=== PATIENT | male | born 1965 | race Caucasian/White ===

== ENCOUNTER → 2018-01-20 14:28 | Outpatient (CLI) | payer OTHER, SELFPAY ==
--- NOTE | 2018-01-20 14:33 | VDLE_ITS ---
Reason For Study: LEG SWELLING RIGHT LEFT CFV is compressible, spontaneous, phasic, GSV is normal. competent and demonstrates normal CFV is compressible, spontaneous, phasic, augmentation. competent, and demonstrates normal Procedure augmentation. Exam performed in department. FV, POP V, T/P trunk, and PTV are dilated LLE images are mislabeled as RLE. and non-compressible with intraluminal A preliminary report was called and/or faxed echoes. to Dr. Mcnally. LT PerV is compressible. Interpretation Summary Acute deep vein thrombosis is noted in the left femoral vein. Acute deep vein thrombosis is noted in the left popliteal vein. Acute deep vein thrombosis is noted in the left tibio-peroneal trunk. Acute deep vein thrombosis is noted in the left posterior tibial vein. The left common femoral vein and peroneal vein are patent and compressible. The left common femoral vein is competent. The left greater saphenous vein appears patent and compressible segmentally. Ordering Physician: Artie Mcnally Referring Physician: Artie Mcnally Performed By: Alayna Souza RVT
== END ==
LOC: CVS 14:30
PROVIDERS: Family Provider Family Medicine; PCP Family Medicine; Visit Provider Family Medicine
DX: R60.0 Localized edema (principal)
CPT/HCPCS: 93971

== ENCOUNTER 2018-02-15 22:12 | Emergency (ER) | payer OTHER, SELFPAY ==
[2018-02-15 22:12] VITALS: BP 122/86; PULSE 86; RESP 19; TEMP 36.1; O2SAT 98; BMI 37.6
[2018-02-15] MEDS: Clindamycin HCl 150 MG Capsule 300 MG PO (22:21)
--- NOTE | 2018-02-15 22:21 | ED.VISSUMM ---
- ER Visit Summary Date of Service: 02/15/18 Chief Complaint: left jaw pain History of Present Illness: The patient is a 53 M who presents with left jaw pain. He states he had acute onset of left tooth pain to 3 days ago. Now complains of left jaw pain and swelling. He denies antibiotic allergies. He is on Eliquis for DVT diagnosed January 20. He denies bruising easily. Denies black or maroon stool. He denies headache. Denies any ocular, visual or auditory symptoms. He denies difficulty opening or closing his mouth. He denies change in voice. He denies difficulty breathing or swallowing. There is no history rheumatic fever, heart murmur, MVP, SPE, IV drug use or being immune suppressed. Physical Examination: Vital signs are unremarkable. Afebrile. Patient has a significant dental Bessy second left lower molar with exposure of pulp. There is inflammation of the gum. There is no fluctuance. There is swelling of the jaw on the left side. There is no evidence of facial cellulitis. There is no trismus. Uvula is midline. Trachea is midline. There is no stridor. Insert cardiopulmonary exam Test Results: None Emergency Department Course and Treatment: Since patient is on Eliquis he was treated with [place] and clindamycin. NSAIDs are contraindicated. Treatment Plan: Outpatient follow-up with dentist and medication for pain and antibiotic. Next field discharged to home at work so well Disposition: Discharge to home Impression: Dental Bessy with exposure of pulp second left lower molar with dental abscess This note was generated with [employer] dictation software. It may contain incorrect words, spelling, and punctuation that were not noted in review of the chart prior to signing ED Disposition - Plan for ED Patient: Disposition: Home or Assisted Living Chief Complaint: Dental Instructions: Dental Abscess Prescriptions: Hydrocodone Bitart/Apap 5-325 [[place] 5MG-325MG] 1 tab PO Q6H PRN PRN 3 Days #10 tab PRN Reason: Pain Clindamycin HCl 300 mg PO 4X/DAY #30 cap Referrals: Artie Mcnally MD [Primary Care Provider] - Dentist,Your [STAFF PHYSICIAN] - 5-7 Days
[2018-02-15 22:22] VITALS: RESP 16
[2018-02-15] MEDS: HYDROcodone Bitartrate/Apap 5/325 Tablet PO ×2 (22:22→22:37)
--- NOTE | 2018-02-15 22:26 | ED.DCSUM_ITS ---
- ER Visit Summary Date of Service: 02/15/18 Chief Complaint: left jaw pain History of Present Illness: The patient is a 53 M who presents with left jaw pain. He states he had acute onset of left tooth pain to 3 days ago. Now complains of left jaw pain and swelling. He denies antibiotic allergies. He is on Eliquis for DVT diagnosed January 20. He denies bruising easily. Denies black or maroon stool. He denies headache. Denies any ocular, visual or auditory symptoms. He denies difficulty opening or closing his mouth. He denies change in voice. He denies difficulty breathing or swallowing. There is no history rheumatic fever, heart murmur, MVP, SPE, IV drug use or being immune suppressed. Physical Examination: Vital signs are unremarkable. Afebrile. Patient has a significant dental Bessy second left lower molar with exposure of pulp. There is inflammation of the gum. There is no fluctuance. There is swelling of the jaw on the left side. There is no evidence of facial cellulitis. There is no trismus. Uvula is midline. Trachea is midline. There is no stridor. Insert cardiopulmonary exam Test Results: None Emergency Department Course and Treatment: Since patient is on Eliquis he was treated with [place] and clindamycin. NSAIDs are contraindicated. Treatment Plan: Outpatient follow-up with dentist and medication for pain and antibiotic. Next field discharged to home at work so well Disposition: Discharge to home Impression: Dental Bessy with exposure of pulp second left lower molar with dental abscess This note was generated with [employer] dictation software. It may contain incorrect words, spelling, and punctuation that were not noted in review of the chart prior to signing ED Disposition - Plan for ED Patient: Disposition: Home or Assisted Living Chief Complaint: Dental Instructions: Dental Abscess Prescriptions: Hydrocodone Bitart/Apap 5-325 [[place] 5MG-325MG] 1 tab PO Q6H PRN PRN 3 Days #10 tab PRN Reason: Pain Clindamycin HCl 300 mg PO 4X/DAY #30 cap Referrals: Artie Mcnally MD [Primary Care Provider] - Dentist,Your [STAFF PHYSICIAN] - 5-7 Days
--- NOTE | 2018-02-15 22:39 | ED.RN ---
home pack added- see MAR
== END 2018-02-15 22:31 | disposition home or self-care (01) ==
PROVIDERS: Emergency Provider Emergency Medicine; Family Provider Family Medicine; PCP Family Medicine
DX: K04.7 Periapical abscess without sinus (principal); K02.9 Dental caries, unspecified; I82.409 Acute embolism and thrombosis of unspecified deep veins of unspecified lower extremity; Z79.02 Long term (current) use of antithrombotics/antiplatelets; Z72.0 Tobacco use
CPT/HCPCS: 99283

== ENCOUNTER → 2019-11-15 | Outpatient (CLI) | payer OTHER, SELFPAY ==
[2019-11-15 15:54] LABS: Vitamin D,25 Hydroxy 21.3 ng/mL
[2019-11-15 16:06] LABS: AST(SGOT) 21 U/L (15-37); Alanine Aminotransfer ALT/SGPT 20 U/L (16-61); Albumin, Serum 3.1 g/dL (3.2-5.0); Alkaline Phosphatase 45 U/L (45-117); Anion Gap 6 (5-15); BUN 9 mg/dL (7-18); BUN/Creat Ratio 11.1 RATIO (10-20); CRP < 2.90 mg/L (0.0-3.0); Calcium,Total 8.4 mg/dL (8.5-10.1); Chloride 105 mmol/L (98-107); Creatinine, Serum 0.81 mg/dL (0.70-1.30); EST Glomerular Filtration Rate 104 mL/min (>60); Est Glom Filt Rate - Afr Amer 126 mL/min (>60); Globulin 3.2 g/dL (2.2-4.2); Glucose 77 mg/dL (74-106); Potassium 3.4 mmol/L (3.5-5.1); Protein, Total 6.3 g/dL (6.4-8.2); Rheumatoid Factor < 10.0 IU/mL (<15); Sodium Level 137 mmol/L (136-145); T4 Free Direct 1.11 ng/dL (0.76-1.46); Thyroid Stim Hormone (TSH) 1.89 uIU/mL (0.358-3.74)
[2019-11-15 16:29] LABS: Absolute Lymphocyte Count 2.21 X10^3/uL (0.83-4.51); Absolute Neutrophil Count 2.4 X10^3/uL (2.0-7.7); Basophil# 0.06 X10^3/uL; Basophil% 1.1 % (0-1); Eosinophil# 0.21 X10^3/uL; Eosinophils% 3.9 % (0-5); Hematocrit 36.1 % (40-54); Hemoglobin 12.6 g/dL (13.0-16.5); Lymphocyte # 2.21 X10^3/ul (4.0); Lymphocyte % 41.5 % (19-41); Mean Corp Hgb Conc 34.9 g/dL (32-36); Mean Corpuscular Hgb 28.7 pg (27.0-32.0); Mean Corpuscular Volume 82.2 fL (80-94); Mean Platelet Vol. 10.4 fl (6.2-12.0); Monocyte# 0.47 X10^3/uL; Monocyte% 8.8 % (0-10); NRBC Flagged by Analyzer 0 % (0-5); Neutrophil # 2.37 X10^3/uL (2.7-7.7); Neutrophil % 44.7 % (47-70); Platelet Count 234 K/mm3 (150-450); RBC Distribution Width CV 13.2 % (11.6-14.6); RBC Distribution Width SD 39.5 fl (35.1-43.9); Red Blood Count 4.39 M/mm3 (4.6-6.2); White Blood Count 5.3 K/mm3 (4.4-11.0)
[2019-11-15 17:16] LABS: Erythrocyte Sedimentation Rate 7 mm/hr (0-20)
[2019-11-16 09:45] LABS: Ferritin 399 ng/mL (26-388); Iron 83 ug/dL (65-175)
[2019-11-17 23:09] LABS: Anti-Nuclear Antibody Test Negative (.)
[2019-11-18 14:09] LABS: CCP IgG Antibodies 8 units (0-19)
== END | disposition home or self-care (01) ==
LOC: BFHLAB 13:17
PROVIDERS: PCP Family Medicine; Visit Provider Family Medicine
DX: M13.0 Polyarthritis, unspecified (principal); D64.9 Anemia, unspecified; R50.9 Fever, unspecified; R53.83 Other fatigue
CPT/HCPCS: 36415; 80053; 82306; 82728; 83540; 84439; 84443; 85025; 85652; 86038; 86140; 86200; 86431

== ENCOUNTER → 2023-10-24 | Outpatient (CLI) | payer OTHER, SELFPAY ==
--- OUTSIDE RECORDS SUMMARY | 2023-10-24 11:03 | XMS RPT_ITS | CCD ---
Author Name Unknown Address [address] [place] [address] Organization [facility] Care Team Providers Care Workforce Development Assistant Name Role Phone ARTIE MCNALLY Unavailable Unavailable SAEED DUKE Unavailable Unavailable ARTIE MCNALLY Unavailable Unavailable SAEED DUKE Unavailable Unavailable Dali ALLEN, Artie Johnson Primary Care Provider Dali ALLEN, Artie Johnson Primary Care Provider Unavailable Primary Care Provider Unavailxenia Mcnally MD, Artie Johnson Primary Care Provider Rohini TITLE ATTORNEY, [place] Primary Care Provider YUDI REID Attending Unavailable ROHINI, LAWTONS Primary Care Unavailable Rohini TITLE ATTORNEY, [place] Primary Care Provider LACY FRANCO Attending Unavailable ASHLYI, SAEED A Referring Unavailable ROHINI, LAWTONS Primary Care Unavailable LACY FRANCO Attending Unavailable LACY FRANCO Referring Unavailable LACY FRANCO Referring Unavailable MASCISAEED A Referring Unavailable ARTIE MCNALLY Primary Care Unavailable SAEED DUKE A Attending Unavailable ARTIE MCNALLY Primary Care Unavailable MASCI, SAEED A Referring Unavailable DALIARTIE STORM Primary Care Unavailable MASCI, SAEED A Referring Unavailable DALIARTIE STORM Primary Care Unavailable MASCI, SAEED A Referring Unavailable DALIARTIE STORM Primary Care Unavailable ASHLYI, SAEED A Referring Unavailable ARTIE MCNALLY Primary Care Unavailable LACY FRANCO Referring Unavailable ROHINI, LAWTONS Primary Care Unavailable LACY FRANCO Referring Unavailable ROHINI, LAWTONS Primary Care Unavailable LACY FRANCO Referring Unavailable ROHINI, LAWTONS Primary Care Unavailable MASCISAEED A Referring Unavailable Medications Current Medications Medication Drug Class(es) Dates Sig (Normalized) Sig (Original) enteric contrast (will be provided with radiology test) (1 source) Start: 12-21-2021 End: 12-21-2021 take 1 dose by mouth once, then take 1 dose by mouth once enteric contrast (will be provided with radiology test) Indications: Malignant melanoma of skin (HCC) Take 1 Each by mouth one time only for [address] ABD/PEL WO Routine order Administer, As Directed One Time Only, via Oral, Rectal, both Oral and Rectal, Enteric Tube, Stoma or Indwelling Catheter, Enteric Contrast as designated per enteric contrast guidelines 1 Each 0 12/21/2021 12/21/2021 Active Completed/Discontinued Medications Medication Drug Class(es) Dates Sig (Normalized) Sig (Original) acetaminophen 325 mg oral tablet (20 sources) Start: 12-01-2013 take 325-650 mg by mouth every four hours as needed acetaminophen 325 mg tablet Take 1-2 tablets by mouth every 4 hours as needed. FOR PAIN. 0 12/01/2013 Active Problems Active Problems Problem Classification Problem Date Documented Da te Episodic/Chronic Cancer of kidney and renal pelvis (2 sources) History of malignant neoplasm of retroperitoneum; Translations: [Personal history of other malignant neoplasm of kidney] Onset: 08-22-2023 08-21-2023 Episodic Melanomas of skin (20 sources) Malignant melanoma; Translations: [Malignant melanoma of skin, unspecified] Onset: 12-02-2013 12-02-2013 Chronic Other connective tissue disease (1 source) Swelling of lower limb; Translations: [Other specified soft tissue disorders] Episodic Other diseases of kidney and ureters (9 sources) Renal mass; Translations: [Other specified disorders of kidney and ureter] Onset: 04-25-2023 Chronic Other diseases of kidney and ureters (4 sources) Other specified disorders of kidney and ureter; Translations: [Right renal mass] Onset: 02-28-2023 Chronic Other diseases of kidney and ureters (3 sources) Acquired renal cystic disease; Translations: [Cyst of kidney, acquired] Episodic Other diseases of kidney and ureters (9 sources) Complex renal cyst; Translations: [Cyst of kidney, acquired] Onset: 04-25-2023 Episodic Other diseases of veins and lymphatics (20 sources) Postthrombotic syndrome; Translations: [Postthrombotic syndrome without complications of unspecified extremity] Onset: 07-08-2018 07-08-2018 Chronic Other diseases of veins and lymphatics (1 source) Postthrombotic syndrome without complications of unspecified extremity; Translations: [Post-phlebitic syndrome] Onset: 07-08-2018 Chronic Other endocrine disorders (1 source) Hypopituitarism; Translations: [Hypopituitarism] Chronic Other nutritional; endocrine; and metabolic disorders (20 sources) Obesity; Translations: [Obesity, unspecified] Onset: 05-18-2008 05-18-2008 Chronic Other nutritional; endocrine; and metabolic disorders (4 sources) Obese class II; Translations: [Obesity, unspecified] Onset: 05-03-2023 05-03-2023 Chronic Other nutritional; endocrine; and metabolic disorders (1 source) Obesity, unspecified; Translations: [Obesity, unspecified classification, unspecified obesity type, unspecified whether serious comorbidity present] Onset: 05-18-2008 Chronic Phlebitis; thrombophlebitis and thromboembolism (20 sources) 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; Translations: [Chronic embolism and thrombosis of left femoral vein] Onset: 01-01-2021 01-01-2021 Chronic Secondary malignancies (1 source) Secondary and unspecified malignant neoplasm of lymph nodes of head, face and neck Onset: 12-20-2017 Chronic Secondary malignancies (20 sources) Metastasis to head and neck lymph node; Translations: [Secondary and unspecified malignant neoplasm of lymph nodes of head, face and neck] Onset: 12-02-2013 12-02-2013 Chronic Thyroid disorders (20 sources) Non-toxic uninodular goiter; Translations: [Nontoxic single thyroid nodule] Onset: 04-28-2014 04-28-2014 Chronic Unclassified (1 source) Unknown / UNK(Unknown) Onset: 12-02-2013 Past or Other Problems Problem Classification Problem Date Documented Da te Episodic/Chronic Abdominal hernia (20 sources) Umbilical hernia; Translations: [Umbilical hernia without obstruction or gangrene] Onset: 05-18-2008 05-18-2008 Episodic Other diseases of kidney and ureters (5 sources) Cyst of kidney, acquired; Translations: [Complex renal cyst] Onset: 02-04-2023 Episodic Other gastrointestinal disorders (1 source) Splenomegaly, not elsewhere classified; Translations: [Splenomegaly, not elsewhere classified] Onset: 01-16-2023 Episodic Phlebitis; thrombophlebitis and thromboembolism (20 sources) Deep venous thrombosis of profunda femoris vein; Translations: [Acute embolism and thrombosis of left femoral vein] Onset: 03-30-2018 07-08-2018 Episodic Results Test Name Value Interpretation Reference Range Facil ity Vital Signs Date Time Vital Sign Value Performing Clinician Rajesh swenson 08-22-2023 14:45-0500 Body height 179.1 cm Lacy Franco MD Work Phone: [facility] 08-22-2023 14:45-0500 Body weight 108.41 kg Lacy Franco MD Work Phone: [facility] 08-22-2023 14:45-0500 Diastolic blood pressure 76 mm[Hg] Lacy Franco MD Work Phone: [facility] 08-22-2023 14:45-0500 Heart rate 68 /min Lacy Franco MD Work Phone: [facility] 08-22-2023 14:45-0500 SaO2% (BldA) [Mass fraction] 98 % Lacy Franco MD Work Phone: [facility] 08-22-2023 14:45-0500 Systolic blood pressure 132 mm[Hg] Lacy Franco MD Work Phone: [facility] 02-28-2023 08:42-0400 Body height 179.1 cm Lacy Franco MD Work Phone: [facility] 02-28-2023 08:42-0400 Body weight 129.28 kg Lacy Franco MD Work Phone: [facility] 02-28-2023 08:42-0400 Diastolic blood pressure 92 mm[Hg] Lacy Franco MD Work Phone: [facility] 02-28-2023 08:42-0400 Systolic blood pressure 138 mm[Hg] Lacy Franco MD Work Phone: [facility] 12-21-2021 14:55-0400 Body temperature 96.49 [degF] Saeed Duke DO Work Phone: [facility] 12-21-2021 14:55-0400 Body weight 132 kg Saeed Duke DO Work Phone: [facility] 12-21-2021 14:55-0400 Diastolic blood pressure 78 mm[Hg] Saeed Duke DO Work Phone: [facility] 12-21-2021 14:55-0400 Heart rate 69 /min Saeed Duke DO Work Phone: [facility] 12-21-2021 14:55-0400 SaO2% (BldA) [Mass fraction] 98 % Saeed Duke DO Work Phone: [facility] 12-21-2021 14:55-0400 Systolic blood pressure 138 mm[Hg] Saeed Duke DO Work Phone: [facility] Encounters Encounter Date Encounter Type Care Provider Facility Start: 08-22-2023 End: 08-22-2023 [facility] Facility:[facility] Start: 08-22-2023 End: 08-22-2023 Patient encounter procedure Lacy Franco MD Work Phone: Urology Procedures Date Procedure Procedure Detail Performing Clinician Start: 05-15-2023 Antibody screen LACY FRANCO Plan of Treatment Date Care Activity Detail Author Start: 05-27-2026 Diabetes Screening Diabetes Screenapoorva g [facility] Start: 03-04-2026 DIABETES SCREEN DIABETES SCREEN [facility] Start: 12-18-2025 DIABETES SCREEN DIABETES SCREEN [facility] Start: 12-18-2024 DIABETES SCREEN DIABETES SCREEN [facility] Start: 12-29-2023 DIABETES SCREEN DIABETES SCREEN [facility] Start: 11-21-2023 End: 02-20-2024 CREATININE BLD CREATININE BLD Lab Routine Complex renal cyst Expected: 11/21/2023 (Approximate), Expires: 02/20/2024 [facility] Work Phone: Immunizations Immunization Date Immunization Notes Care Provider Atilio daily 07-08-2018 influenza virus vacc ine, unspecified formulation Ct (I-Stat) Work Phone: [facility] Payers Date Payer Category Payer Private Health Insurance [facility] CHOICE PLUS [id number] 2007-Present [phone] [address] [place] [id number] O [id number] 2007 Private Health Insurance [facility] CHOICE PLUS [id number] 2007-Present [phone] [address] [place] [id number] O [id number] 2007 Unknown [id number] Social History Date Type Detail Facility Start: 12-21-2013 Tobacco smoking stat [facility] Never smoked tobacco [facility] Start: 01-01-2021 End: 08-22-2023 Alcohol intake Current drinker of alcohol (finding) [facility] Start: 05-18-2008 History SDOH Alcohol Comment occasional [facility] Start: 1965 Sex Assigned At Male C [facility] Start: 11-19-2021 End: 12-21-2021 Exposure to SARS-CoV-2 (event) Not sure [facility] Start: 12-21-2013 Tobacco use and exposure Smoke less tobacco non-user [facility] Start: 12-17-2022 End: 02-28-2023 History of Social function [facility] Start: 12-17-2022 End: 02-28-2023 Tobacco use panel [facility] Adult Depression Screening Assessment 0 [facility] Start: 12-22-2018 Gender identity Identifies as male gender (finding) [facility] Start: 12-22-2018 Sexual orientation Heterosexual (fin ding) [facility] Clinical Notes 07-08-2018 to 08-22-2023 Lacy Franco MD - 08/22/2023 2:45 PM Jessi Urban RDMS - 08/21/2023 10:45 AM ESTTelephone Encounter - Barbara Brenner LPN - 08/18/2023 10:41 AM EST Note Date & Type Note Facility 08-22-2023 Note HNO ID: [id number] Author: Lacy Franco MD Service: ? Author Type: Physician Type: Progress Notes Filed: 08/22/2023 3:00 PM Note Text: [facility] ESTABLISHED PATIENT FOLLOW-UP NOTE PATIENT: Yoko Rivera (58 year old) PCP: Ruthie Calderon NP ------- --------- SUMMARY: #Right renal cell carcinoma. 05/15/23 - R-RPN. Final path - pT1aR0 G2 ccRCC. Low risk. #Complex renal cyst. 1.9-cm Bosniak 2F left lower pole complex renal cyst on CT renal-01/2023. PMH sig for h/o melanoma s/p parotid removal and lymph node dissection and adjuvant therapy. *BT=Xarelto for history of DVT. ASSESSMENT: 1. Complex renal cyst - ICD9: 753.10, ICD10: N28.1 (primary diagnosis) 2. History of kidney cancer - ICD9: V10.52, ICD10: Z85.528 3. Acquired cyst of kidney - ICD9: 593.2, ICD10: N28.1 PLAN: #1 Chronic, unstable. BENY images personally reviewed. The images are poor quality, in part, due to body habitus. On my read, the left lower pole renal cyst appears to be simple or mildly complex. Follow up radiology final read. I recommend MRI kidney wwo gadolinium for better evaluation. #2 Chronic, stable. Proceed with surveillance. sCr is wnl and stable. Plan for renal and chest imaging and Cr in ~9 months. He gets other surveillance imaging for melanoma surveillance with Dr. Duke; the imaging can likely be consolidated. FOLLOW UP: Return in about 3 months (around 11/21/2023) for MRI kidney. ------- --------- CHIEF COMPLAINT: Patient presents with: Follow Up: Right renal mass HISTORY OF PRESENT ILLNESS: Prior notes were reviewed. The patient reports doing well. No complaints. AMELIA/AUASS FORMS No question data found. REVIEW OF SYSTEMS: Not applicable ALLERGIES: ALLERGIES No Known Allergies MEDICATIONS: iv contrast (will be provided with radiology test) MRI Kidney Inject, intravenously, once for 1 dose. No IV access, insert saline lock prior to the beginning of sedation, infusion, injection of imaging exam. Discontinue saline lock post exam. If Pt. has a central line or IVAD, may access for administration according to line specific nursing protocol. Once exam is complete flush line and de-access according to line specific nursing protocol in the MR contrast administration guidelines link. XARELTO 10 mg tablet Take 1 tablet by mouth once daily. cetirizine (ZYRTEC) 10 mg tablet Take 10 mg by mouth daily at bedtime. hydrocortisone (CORTEF) 10 mg tablet TAKE 2 TABLETS ONCE DAILY (Patient taking differently: Take 10 mg by mouth once daily.) SYNTHROID 50 mcg tablet TAKE 1 TABLET ONCE DAILY JOSHUA EMPTY STOMACH multivitamin tablet Take 1 tablet by mouth once daily. acetaminophen 325 mg tablet Take 1-2 tablets by mouth every 4 hours as needed. FOR PAIN. PAST HISTORY: PAST MEDICAL HISTORY Diagnosis Date Adrenal insufficiency (HCC) per medical records Known medical problems 2017 dvt lower leg Known medical problems portal thrombus 2019 Melanoma (HCC) 11/01/13 removal of parodid gland PAST SURGICAL HISTORY Procedure Laterality Date PAST SURGICAL HISTORY OF age 2 oral surgery PAST SURGICAL HISTORY OF age 17 left jaw surgery post fracture (tripod fracture) PAST SURGICAL HISTORY OF 2013 parotid gland removed TONSILLECTOMY PRIMARY/SECONDARY FAMILY HISTORY Problem Relation Age of Onset Cancer Father kidney Breast Cancer Mother Cancer Sister skin, unsure type Diabetes Other none Coronary Artery Disease Other none other (tuberculosis [Other]) Father Social History Tobacco Use Smoking status: Never Smokeless tobacco: Never Vaping Use Vaping Use: Never used Substance Use Topics Alcohol use: Yes Comment: occasional Drug use: No Comment: no medicatl THC card PHYSICAL EXAMINATION: BP 132/76 Pulse 68 Ht 179.1 cm (5' 10.5 ) Wt 108.4 kg (239 lb) SpO2 98% BMI 33.81 kg/m? Genitourinary: (1) Rectal: . (2) CVA: . (3) Genital: . (4) Gonads: . (5) Other: . Constitutional: In no acute distress. Well appearing. Respiratory: Normal respiratory effort without use of accessory muscles. Musculoskeletal: Normal gait and station Cardiovascular: Gastrointestinal: Incisions well healed. DATA: Clinic: URINALYSIS: N/a Laboratory: Creatinine Date Value Ref Range Status 08/21/2023 0.91 0.73 - 1.22 mg/dL Final 05/27/2023 0.96 0.73 - 1.22 mg/dL Final 05/16/2023 1.05 0.73 - 1.22 mg/dL Final 03/04/2023 1.07 0.73 - 1.22 mg/dL Final PSA: No results found for: PSA Cultures: Culture Results - Past 1 Year CULTURE 04/30/2023 <10,000 CFU/ml Normal Urogenital Nettie Some recent data might be hidden Susceptibility Tests - Past 1 Year No results fo (more content not included)... [facility] 08-22-2023 History of Present illness Narrative [facility] ESTABLISHED PATIENT FOLLOW-UP NOTE PATIENT: Yoko Fermin Aanhi (58 year old) PCP: Ruthie Calderon NP SUMMARY: #Right renal cell carcinoma. 05/15/23 - R-RPN. Final path - pT1aR0 G2 ccRCC. Low risk. #Complex renal cyst. 1.9-cm Bosniak 2F left lower pole complex renal cyst on CT renal-01/2023. PMH sig for h/o melanoma s/p parotid removal and lymph node dissection and adjuvant therapy. *BT=Xarelto for history of DVT. ASSESSMENT: 1. Complex renal cyst - ICD9: 753.10, ICD10: N28.1 (primary diagnosis) 2. History of kidney cancer - ICD9: V10.52, ICD10: Z85.528 3. Acquired cyst of kidney - ICD9: 593.2, ICD10: N28.1 PLAN: #1 Chronic, unstable. BENY images personally reviewed. The images are poor quality, in part, due to body habitus. On my read, the left lower pole renal cyst appears to be simple or mildly complex. Follow up radiology final read. I recommend MRI kidney wwo gadolinium for better evaluation. #2 Chronic, stable. Proceed with surveillance. sCr is wnl and stable. Plan for renal and chest imaging and Cr in ~9 months. He gets other surveillance imaging for melanoma surveillance with Dr. Duke; the imaging can likely be consolidated. FOLLOW UP: Return in about 3 months (around 11/21/2023) for MRI kidney. CHIEF COMPLAINT: Patient presents with: Follow Up: Right renal mass HISTORY OF PRESENT ILLNESS: Prior notes were reviewed. The patient reports doing well. No complaints. AMELIA/AUASS FORMS No question data found. REVIEW OF SYSTEMS: Not applicable ALLERGIES: ALLERGIES No Known Allergies MEDICATIONS: iv contrast (will be provided with radiology test) MRI Kidney Inject, intravenously, once for 1 dose. No IV access, insert saline lock prior to the beginning of sedation, infusion, injection of imaging exam. Discontinue saline lock post exam. If Pt. has a central line or IVAD, may access for administration according to line specific nursing protocol. Once exam is complete flush line and de-access according to line specific nursing protocol in the MR contrast administration guidelines link. XARELTO 10 mg tablet Take 1 tablet by mouth once daily. cetirizine (ZYRTEC) 10 mg tablet Take 10 mg by mouth daily at bedtime. hydrocortisone (CORTEF) 10 mg tablet TAKE 2 TABLETS ONCE DAILY (Patient taking differently: Take 10 mg by mouth once daily.) SYNTHROID 50 mcg tablet TAKE 1 TABLET ONCE DAILY JOSHUA EMPTY STOMACH multivitamin tablet Take 1 tablet by mouth once daily. acetaminophen 325 mg tablet Take 1-2 tablets by mouth every 4 hours as needed. FOR PAIN. PAST HISTORY: PAST MEDICAL HISTORY Diagnosis Date Adrenal insufficiency (HCC) per medical records Known medical problems 2017 dvt lower leg Known medical problems portal thrombus 2019 Melanoma (HCC) 11/01/13 removal of parodid gland PAST SURGICAL HISTORY Procedure Laterality Date PAST SURGICAL HISTORY OF age 2 oral surgery PAST SURGICAL HISTORY OF age 17 left jaw surgery post fracture (tripod fracture) PAST SURGICAL HISTORY OF 2013 parotid gland removed TONSILLECTOMY PRIMARY/SECONDARY <AGE 10 age 9 FAMILY HISTORY Problem Relation Age of Onset Cancer Father kidney Breast Cancer Mother Cancer Sister skin, unsure type Diabetes Other none Coronary Artery Disease Other none other (tuberculosis [Other]) Father Social History Tobacco Use Smoking status: Never Smokeless tobacco: Never Vaping Use Vaping Use: Never used Substance Use Topics Alcohol use: Yes Comment: occasional Drug use: No Comment: no medicatl THC card PHYSICAL EXAMINATION: BP 132/76 Pulse 68 Ht 179.1 cm (5' 10.5 ) Wt 108.4 kg (239 lb) SpO2 98% BMI 33.81 kg/m Genitourinary: (1) Rectal: . (2) CVA: . (3) Genital: . (4) Gonads: . (5) Other: . Constitutional: In no acute distress. Well appearing. Respiratory: Normal respiratory effort without use of accessory muscles. Musculoskeletal: Normal gait and station Cardiovascular: Gastrointestinal: Incisions well healed. DATA: Clinic: URINALYSIS: N/a Laboratory: Creatinine Date Value Ref Range Status 08/21/2023 0.91 0.73 - 1.22 mg/dL Final 05/27/2023 0.96 0.73 - 1.22 mg/dL Final 05/16/2023 1.05 0.73 - 1.22 mg/dL Final 03/04/2023 1.07 0.73 - 1.22 mg/dL Final PSA: No results found for: PSA Cultures: Culture Results - Past 1 Year CULTURE 04/30/2023 <10,000 CFU/ml Normal Urogenital Nettie Some recent data might be hidden Susceptibility Tests - Past 1 Year No results found for the last 365 days. MEDICAL DECISION MAKING PROBLEM(S): DATA: Category 1 Review of test result(s): Ordering of test(s): Review of prior external note: Independent historian: Category 2 Independent interpretation of test: Category 3 Discussion of management or test interpretation: RISK: I have reviewed the problem list, family history, and social history documented by my ancillary staff. Lacy Franco MD Staff Urologist documented in this encounter [facility] 08-21-2023 Note HNO ID: [id number] Author: Jessi Herrera RDMS Service: ? Author Type: Heavy Forging Machine Operator Type: Progress Notes Filed: 08/21/2023 11:11 AM Note Text: Radiology Service Progress Note PATIENT NAME: Yoko Rivera DATE OF SERVICE: August 21, 2023 TIME: 11:11 AM PATIENT IDENTITY VERIFICATION COMPLETED USING TWO (2) IDENTIFIERS: Name and Date of confirmed by patient verbally. FALL SCREENING: Has the patient had 2 falls in the last year or 1 fall with injury or currently using an Ambulatory Assistive Device (Walker, Cane, Wheelchair, Crutches, etc.)? No PATIENT GENDER DATA: Male PATIENT RELEVANT IMPLANT DATA REVIEWED: Not Applicable RADIOLOGY DEPARTMENT: Ultrasound PERIPHERAL IV DATA: Not applicable SIGNED BY: Jessi Herrera RDMS August 21, 2023 11:11 AM [facility] 08-21-2023 History of Present illness Narrative Radiology Service Progress Note PATIENT NAME: Yoko Rivera DATE OF SERVICE: August 21, 2023 TIME: 11:11 AM PATIENT IDENTITY VERIFICATION COMPLETED USING TWO (2) IDENTIFIERS: Name and Date of confirmed by patient verbally. FALL SCREENING: Has the patient had 2 falls in the last year or 1 fall with injury or currently using an Ambulatory Assistive Device (Walker, Cane, Wheelchair, Crutches, etc.)? No PATIENT GENDER DATA: Male PATIENT RELEVANT IMPLANT DATA REVIEWED: Not Applicable RADIOLOGY DEPARTMENT: Ultrasound PERIPHERAL IV DATA: Not applicable SIGNED BY: Jessi Herrera RDMS August 21, 2023 11:11 AM documented in this encounter [facility] 08-18-2023 Miscellaneous Notes Rx pended. Barbara Brenner LPN documented in this encounter [facility] 05-29-2023 Note HNO ID: [id number] Author: Yudi Reid, PRODUCT OWNER.SOURCE INSPECTOR Service: ? Author Type: Nurse Practitioner Type: Progress Notes Filed: 05/30/2023 2:03 PM Note Text: [facility] ESTABLISHED PATIENT FOLLOW-UP NOTE PATIENT: Yoko Rivera (58 year old) PCP: Ruthie Calderon NP ------- --------- SUMMARY: History of melanoma s/p parotid removal and lymph node dissection and adjuvant therapy. He has been on surveillance. CT-12/2022 obtained for malignant melanoma of skin surveillance incidentally detected a 2.2-cm upper pole right renal lesion and stable adenopathy adjacent to the left renal vein. MRI-01/2023 showed enhancement of the upper pole right renal lesion, also showed cirrhosis and chronic portal vein thrombosis. CT renal-01/2023 showed a 1.8-cm enhancing upper pole right renal mass and a 1.9-cm Bosniak 2F left lower pole complex renal cyst. CT-chest, 12/2022 - neg for mets. (1A with early branching, 1V, 1U). *BT=Xarelto for history of DVT. PMH sig for umbilical hernia. S/p robotic assisted laparoscopic right partial nephrectomy, intraoperative renal us on 05/15/[address] Franco assisted by Dr. Govea. ASSESSMENT/PLAN: 1. Right renal mass - ICD9: 593.9, ICD10: N28.89 (primary diagnosis) Patient is s/p robotic assisted laparoscopic right partial nephrectomy, intraoperative renal us on 05/15/[address] Franco assisted by Dr. Govea. Patient is POD # 14. Patient is doing well post operatively. He reports pain is controlled. Currently taking no medications for pain. Tylenol Incisions well approximated without redness, warmth, or drainage. Having bowel movements without difficulty. Appetite is well. Pathology reviewed which demonstrated A. Kidney, right, partial nephrectomy: - Clear cell renal cell carcinoma, WHO grade 2 (see comment). - Tumor size: 2.2 cm in greatest dimension. - Margins negative for tumor.. Follow-up: with Dr. Franco Follow-up imaging to be completed by hem/onc with CT scans as LR disease. 2. Complex renal cyst - ICD9: 753.10, ICD10: N28.1 Renal US 08/22/23. FOLLOW UP: Return for Keep scheduled appointment with Dr. Franco in August. ------- --------- CHIEF COMPLAINT: Patient presents with: Follow Up HISTORY OF PRESENT ILLNESS: Prior notes were reviewed. The patient reports doing well. Mr. Rivera presents for 2 week follow-up S/P right partial nephrectomy by Dr. Franco/Dr. Govea on 05/15/23. He reports he is doing well. He reports he is having no pain. He is taking Tylenol intermittent for pain. Incisions well approximated without redness, warmth, or drainage. Bowels are moving without difficulty. He reports good appetite and eating/drinking without difficulty. REVIEW OF SYSTEMS GENERAL:Denies unintentional weight loss, malaise or fevers. NEUROLOGIC: pt is alert and oriented GASTROINTESTINAL: No nausea, vomiting, or diarrhea GENITOURINARY: See HPI MUSCULOSKELETAL: Negative for joint pain or swelling, back pain or muscle pain SKIN: Negative for lesions, rash, and itching. ALLERGIES: ALLERGIES No Known Allergies MEDICATIONS: XARELTO 10 mg tablet Take 1 tablet by mouth once daily. cetirizine (ZYRTEC) 10 mg tablet Take 10 mg by mouth daily at bedtime. hydrocortisone (CORTEF) 10 mg tablet TAKE 2 TABLETS ONCE DAILY (Patient taking differently: Take 10 mg by mouth once daily.) SYNTHROID 50 mcg tablet TAKE 1 TABLET ONCE DAILY JOSHUA EMPTY STOMACH multivitamin tablet Take 1 tablet by mouth once daily. acetaminophen 325 mg tablet Take 1-2 tablets by mouth every 4 hours as needed. FOR PAIN. senna-docusate (SENOKOT-S) 8.6-50 mg per tablet Take 2 tablets by mouth twice daily. (Patient not taking: Reported on 05/29/2023) oxyCODONE-acetaminophen (PERCOCET) 5-325 mg tablet Take 1 tablet by mouth every 8 hours as needed for pain. (Patient not taking: Reported on 05/29/2023) PAST HISTORY: PAST MEDICAL HISTORY Diagnosis Date Adrenal insufficiency (HCC) per medical records Known medical problems 2017 dvt lower leg Known medical problems portal thrombus 2019 Melanoma (HCC) 11/01/13 removal of parodid gland PAST SURGICAL HISTORY Procedure Laterality Date PAST SURGICAL HISTORY OF age 2 oral surgery PAST SURGICAL HISTORY OF age 17 left jaw surgery post fracture (tripod fracture) PAST SURGICAL HISTORY OF 2013 parotid gland removed TONSILLECTOMY PRIMARY/SECONDARY FAMILY HISTORY Problem Relation Age of Onset Cancer Father kidney Breast Cancer Mother Cancer Sister skin, unsure type Diabetes Other none Coronary Artery Disease Other none other (tuberculosis [Other]) Father Social History Tobacco Use Smoking status: Never Smokeless tobacco: Never Vaping (more content not included)... [facility] 05-16-2023 Note HNO ID: [id number] Author: Misael Crum MD Service: Urology Author Type: Resident Type: Progress Notes Filed: 05/16/2023 8:09 AM Note Text: Attestation signed by Rafael Baig MD at 05/16/2023 10:12 AM Discussed with the resident (who reviewed case with Dr Franco) and agree with resident's findings and plan as documented in the resident's note. Rafael Baig MD UROLOGY PROGRESS NOTE PATIENT NAME: Yoko Rivera DATE OF : 1965 ADMISSION DATE: 05/15/2023 6:48 AM Subjective Mr. Rivera is feeling well overall this morning and reports 6-7/10 pain on his right side. He has not been taking many of his pain medications so he will try something this AM. He denies fevers, chills, nausea, vomiting, and shortness of breath. He has not ambulated yet but did tolerate a liquid dinner. He is hopeful for discharge today. Objective VS: BP 111/66 Pulse 70 Temp 36.6 ?C (97.9 ?F) (Oral) Resp 18 Ht 180.3 cm (5' 11 ) Wt 116.1 kg (256 lb) SpO2 95% BMI 35.70 kg/m? I AND O - 24hr: Intake/Output Summary (Last 24 hours) at 05/16/2023 0446 Last data filed at 05/15/20232022 Gross per 24 hour Intake 2200 ml Output 1020 ml Net 1180 ml Physical Exam: General: Neck: Resp: Abdomen: No acute distress Supple Normal effort Soft, tender on right, non-distended. No DAPHNE drain. : Catheter draining clear yellow urine Labs and Imaging Studies LABS: BMP: Recent Labs 05/16/23 0327 NA 138 K 4.2 CHLOR 108* CO2 20* BUN 16 CREAT 1.05 GLUC 120* CBC: Recent Labs 05/16/23 0322 05/15/23 0856 WBC 8.78 -- HB 13.9 13.3 HCT 40.7 38.1* PLT 116* -- RADIOLOGY: No post-op imaging. Assessment/Plan ASSESSMENT: 58 year old male POD1 from robot assisted right partial nephrectomy for renal mass. PLAN: -Patient is recovering well -Home meds as ordered -Hold xarelto until 7 days post-op -Pain/nausea control as ordered -Last dose of hydrocortisone this am -ICDs for DVT prophylaxis -Incentive spirometry -Encourage ambulation -Void trial this AM -Likely discharge today John Beatty- Medical Student Doing well this morning No nausea or vomiting Hasn't ambulated yet Pain controlled on meds Demonstrated IS usage on rounds Plan: - pain control - encourage ambulation - void trial - regular diet - hydrocortisone x3 doses post-op - possible discharge later today pending clinical improvement I agree with the medical student's assessment and plan. Appropriate changes made by myself. Patient independently seen and examined. Mickey Crum MD Urology, PGY-5 May 16, 2023 8:07 AM Page sales support consultant resident with questions [facility] 05-15-2023 Note HNO ID: [id number] Author: Joan Naranjo MD Service: Anesthesiology Author Type: Anesthesiologist Type: Anesthesia Procedure Notes Filed: 05/15/2023 11:18 AM Note Text: ANESTHESIOLOGY PROCEDURE NOTE A-Line General Information Procedure Start Time/Medication Administration: 05/15/2023 8:20 AM Patient location during procedure: OR Timeout Performed Pre-procedure: timeout performed Indications: continuous blood pressure monitoring and blood sampling needed Staffing Anesthesiologist: Joan Naranjo MD Performed by: anesthesiologist Preparation Sterility Preparation: hand hygiene performed prior to procedure, surgical cap used, mask used, skin prep agent completely dried prior to procedure Site Prep: Chloraprep Procedure Details Catheter Type: arterial line Catheter Size: 20 G Laterality: left Site: radial artery Ultrasound Guided: Yes Image in Chart: No Sites: potential access sites evaluated, selected vessel patent, concurrent real time ultrasound visualization of vascular needle entry Vessel: target vessel identified and guidewire advanced into vessel Line Secured: Tegaderm Events Events: patient tolerated procedure well with no complications SIGNATURE: Joan Naranjo MD PATIENT NAME: Yoko Rivera DATE: May 15, 2023 TIME: 11:18 AM CSN: [id number] [facility] 05-15-2023 Miscellaneous Notes The patient had surgery today; he should be discharged home tomorrow. Please schedule follow up with Yudi Reid CNP in 1-2 weeks with labs for postop check and path review. Please schedule follow up with me the week of 08/18/23 with a renal ultrasound (with an empty bladder) and Creatinine. Thanks documented in this encounter [facility] 05-15-2023 Note HNO ID: [id number] Author: Gordon Chow APRN.MIDDLE SCHOOL COMBINATION TEACHER Service: Nursing Author Type: Nurse Light Technician Type: Anesthesia Procedure Notes Filed: 05/15/2023 9:00 AM Note Text: ANESTHESIOLOGY PROCEDURE NOTE Airway General Information Procedure Start Time/Medication Administration: 05/15/2023 8:15 AM Patient location during procedure: OR Timeout Performed Pre-procedure: timeout performed Consent Obtained: Yes Patient identity confirmed: arm band and patient Staffing Anesthesiologist: Joan Naranjo MD MIDDLE SCHOOL COMBINATION TEACHER: Gordon Chow APRN.MIDDLE [employer]CHOOL COMBINATION TEACHER Performed by: MIDDLE SCHOOL COMBINATION TEACHER Indications and Patient Condition Indications for airway management: anesthesia Preoxygenated: yes anesthesia circuit Patient position: sniffing Method: asleep Cricoid Pressure: No Manual In-Line Stabilization: No Difficult Mask: No Final Airway Details Final airway type: endotracheal airway Final Endotracheal Airway: ETT Cuffed: yes Successful intubation technique: direct laryngoscopy Devices used: intubating stylet Endotracheal tube insertion site: oral Blade: Johan Blade size: #4 ETT size (mm): 8.0 Measured from: lips Measurement (cm): 22 Placement verified by: chest auscultation and capnometry Cormack-Lehane Classification: grade I - full view of glottis Number of attempts at approach: 1 Failed airway: no Unrecognized esophageal intubation: no Airway not difficult SIGNATURE: Gordon Chow APRN.CRNA PATIENT NAME: Yoko Rivera DATE: May 15, 2023 TIME: 8:56 AM CSN: [id number] [facility] 05-14-2023 Note HNO ID: [id number] Author: Barb Louise APRN.SOURCE INSPECTOR Service: Anesthesiology Author Type: Nurse Practitioner Type: Progress Notes Filed: 05/14/2023 11:06 AM Note Text: Pt has hx of adrenal insufficiency per medical record. I called the patient and left a message instructing patient to take Cortef with sip of water on morning of surgery. [facility] 05-14-2023 Note HNO ID: [id number] Author: Barb Louise APRN.SOURCE INSPECTOR Service: Anesthesiology Author Type: Nurse Practitioner Type: Progress Notes Filed: 05/14/2023 11:00 AM Note Text: Upon reviewing case there is a clearance form scanned into [employer] which has not been signed. It states that medical clearance is needed. I notified Puja in Dr. Franco's office of this. She will work on this. [facility] 02-28-2023 Note HNO ID: [id number] Author: Lacy Franco MD Service: ? Author Type: Physician Type: Progress Notes Filed: 02/28/2023 9:30 AM Note Text: [facility] NEW PATIENT HISTORY AND PHYSICAL EXAMINATION PATIENT: Yoko Rivera (58 year old) PCP: No primary care provider on file. ------- --------- SUMMARY: History of melanoma s/p parotid removal and lymph node dissection and adjuvant therapy. He has been on surveillance. CT-12/2022 obtained for malignant melanoma of skin surveillance incidentally detected a 2.2-cm upper pole right renal lesion and stable adenopathy adjacent to the left renal vein. MRI-01/2023 showed enhancement of the upper pole right renal lesion, also showed cirrhosis and chronic portal vein thrombosis. CT renal-01/2023 showed a 1.8-cm enhancing upper pole right renal mass and a 1.9-cm Bosniak 2F left lower pole complex renal cyst. CT-chest, 12/2022 - neg for mets. (1A with early branching, 1V, 1U). *BT=Xarelto for history of DVT. PMH sig for umbilical hernia. ASSESSMENT: 1. Right renal mass - ICD9: 593.9, ICD10: N28.89 (primary diagnosis) 2. Complex renal cyst - ICD9: 753.10, ICD10: N28.1 3. Kidney mass - ICD9: 593.9, ICD10: N28.89 PLAN: #1 The patient is interested in partial nephrectomy. I counseled the patient that partial nephrectomy is considered a major surgery that carries potential surgical risks including, but not limited to, bleeding, infection, adjacent organ injury, kidney loss, renal insufficiency, need for short-term or long-term dialysis, and cancer recurrence and anesthetic risks including, but not limited to, heart attack, stroke, pulmonary embolism/deep venous thrombosis, and . I discussed risks unique to partial nephrectomy, including ureteral injury, positive surgical margin, and conversion to radical nephrectomy. I discussed the open, laparoscopic, and robotic approaches and risk of open conversion with the minimally invasive surgery. I discussed the patient's overall health and how the patient's comorbidities may increase the risk of medical and/or surgical complications. I informed the patient that these complications may require longer hospitalization and/or additional surgery. Special considerations were discussed with the patient and include: umbilical hernia with increased risk of bowel injury, Xarelto use with increased risk of bleeding, history of DVT with increased risk of DVT/PE. (KARLA) The operation was reviewed in detail, including my preferred approach (robotic) and anticipated duration (6 hours). I discussed the expected postoperative course, including overnight stay in the hospital. I discussed the need for a Mills catheter for overnight. I discussed the need for an abdominal drain that is usually removed prior to discharge from the hospital. I discussed the use of a combination of narcotic and non-narcotic pain medications after surgery and that I do not anticipate the need for narcotic pain medications for longer than 1 week after surgery. I discussed that the patient would be on activity restrictions (no heavy lifting >15 lbs or strenuous activity) for 1 month after surgery. (ANUSHA) The patient was informed that another board-certified urologist would be assisting me with the surgery. I informed the patient that there may be urology residents involved in the surgery and aftercare but that I would perform all critical steps and make all critical decision making. Lastly, I informed the patient that advanced practice providers may be involved in her outpatient postoperative care. The patient wishes to proceed with surgery. (ANUSHA) In terms of preoperative preparation for surgery, I discussed the following. A urine culture will be sent prior to surgery, and asymptomatic bacteruria will be treated prior to surgery. I have asked the patient to take Miralax twice daily for 5-7 days prior to surgery to keep the bowel movements soft and regular. I have asked the patient to stop the following blood thinners prior to surgery: Xarelto for 3 days prior to and up to 1 week after surgery. A presurgical testing appointment will be requested. Clearance for surgery will be requested from: Dr. Duke for general medical/oncology clearance and for clearance to stop Xarelto. All questions were answered. Informed consent was obtained. ([facility]) #2 Chronic, unstable. There is a 5% risk of malignancy. I recommend surveillance. FOLLOW UP: Return for surgery. ------- --------- CHIEF COMPLAINT: Patient presents with: kidney mass HISTORY OF PRESENT ILLNESS: I personally reviewed the patient's past medical records. I personally reviewed the prior ra (more content not included)... [facility] 02-28-2023 Miscellaneous Notes Timing: next available Surgery: Right robotic partial nephrectomy with intraoperative ultrasound for tumor identification, possible radical nephrectomy, possible open conversion Duration: 6 hour(s) Surgeon: Lacy Franco MD Patient Service Technician Pst: James Govea MD (assisting) Location: main Anesthesia: General Fluoroscopy: No Special equipment: No Presurgical testing: Yes Clearance: Yes, If yes describe:Dr. Duke (oncologist) Orders: Yes, If yes describe:CBC, CMP, urine culture, EKG 1-2 weeks prior Bowel prep: Yes, If yes describe:5-day Miralax Blood thinners to stop: Xarelto for 3 days documented in this encounter [facility] 02-28-2023 History of Present illness Narrative [facility] NEW PATIENT HISTORY AND PHYSICAL EXAMINATION PATIENT: Yoko Rivera (58 year old) PCP: No primary care provider on file. SUMMARY: History of melanoma s/p parotid removal and lymph node dissection and adjuvant therapy. He has been on surveillance. CT-12/2022 obtained for malignant melanoma of skin surveillance incidentally detected a 2.2-cm upper pole right renal lesion and stable adenopathy adjacent to the left renal vein. MRI-01/2023 showed enhancement of the upper pole right renal lesion, also showed cirrhosis and chronic portal vein thrombosis. CT renal-01/2023 showed a 1.8-cm enhancing upper pole right renal mass and a 1.9-cm Bosniak 2F left lower pole complex renal cyst. CT-chest, 12/2022 - neg for mets. (1A with early branching, 1V, 1U). *BT=Xarelto for history of DVT. PMH sig for umbilical hernia. ASSESSMENT: 1. Right renal mass - ICD9: 593.9, ICD10: N28.89 (primary diagnosis) 2. Complex renal cyst - ICD9: 753.10, ICD10: N28.1 3. Kidney mass - ICD9: 593.9, ICD10: N28.89 PLAN: #1 The patient is interested in partial nephrectomy. I counseled the patient that partial nephrectomy is considered a major surgery that carries potential surgical risks including, but not limited to, bleeding, infection, adjacent organ injury, kidney loss, renal insufficiency, need for short-term or long-term dialysis, and cancer recurrence and anesthetic risks including, but not limited to, heart attack, stroke, pulmonary embolism/deep venous thrombosis, and . I discussed risks unique to partial nephrectomy, including ureteral injury, positive surgical margin, and conversion to radical nephrectomy. I discussed the open, laparoscopic, and robotic approaches and risk of open conversion with the minimally invasive surgery. I discussed the patient's overall health and how the patient's comorbidities may increase the risk of medical and/or surgical complications. I informed the patient that these complications may require longer hospitalization and/or additional surgery. Special considerations were discussed with the patient and include: umbilical hernia with increased risk of bowel injury, Xarelto use with increased risk of bleeding, history of DVT with increased risk of DVT/PE. (MJM) The operation was reviewed in detail, including my preferred approach (robotic) and anticipated duration (6 hours). I discussed the expected postoperative course, including overnight stay in the hospital. I discussed the need for a Mills catheter for overnight. I discussed the need for an abdominal drain that is usually removed prior to discharge from the hospital. I discussed the use of a combination of narcotic and non-narcotic pain medications after surgery and that I do not anticipate the need for narcotic pain medications for longer than 1 week after surgery. I discussed that the patient would be on activity restrictions (no heavy lifting >15 lbs or strenuous activity) for 1 month after surgery. ([facility]) The patient was informed that another board-certified urologist would be assisting me with the surgery. I informed the patient that there may be urology residents involved in the surgery and aftercare but that I would perform all critical steps and make all critical decision making. Lastly, I informed the patient that advanced practice providers may be involved in her outpatient postoperative care. The patient wishes to proceed with surgery. ([facility]) In terms of preoperative preparation for surgery, I discussed the following. A urine culture will be sent prior to surgery, and asymptomatic bacteruria will be treated prior to surgery. I have asked the patient to take Miralax twice daily for 5-7 days prior to surgery to keep the bowel movements soft and regular. I have asked the patient to stop the following blood thinners prior to surgery: Xarelto for 3 days prior to and up to 1 week after surgery. A presurgical testing appointment will be requested. Clearance for surgery will be requested from: Dr. Duke for general medical/oncology clearance and for clearance to stop Xarelto. All questions were answered. Informed consent was obtained. ([facility]) #2 Chronic, unstable. There is a 5% risk of malignancy. I recommend surveillance. FOLLOW UP: Return for surgery. CHIEF COMPLAINT: Patient presents with: kidney mass HISTORY OF PRESENT ILLNESS: I personally reviewed the patient's past medical records. I personally reviewed the prior radiology images, and my findings were discussed with the patient. He is doing well. No melanoma recurrences. AMELIA/AUASS FORMS No question data found. REVIEW OF SYSTEMS: Constitutional: unintentional weight loss - denies Cardiovascular: new or worsening chest pain - denies Respiratory: new or worsening shortness of breath - denies Gastrointestinal: constipation - denies Hematologic/Lymphatic: easy bleeding or bruising - denies ALLERGIES: ALLERGIES No Known Allergies MEDICATIONS: polyethylene glycol 3350 (MIRALAX) 17 gram/dose powder Take 17 g by mouth twice daily for 5 days. Dissolve dose in 4 - 8 ounces of liquid. Start taking this medication 5 days prior to surgery to keep your bowels moving and stool soft. SYNTHROID 50 mcg tablet TAKE 1 TABLET ONCE DAILY JOSHUA EMPTY STOMACH hydrocortisone (CORTEF) 10 mg tablet Take 2 tablets by mouth once daily. XARELTO 10 mg tablet Take 10 mg by mouth once daily. multivitamin tablet Take 1 tablet by mouth once daily. acetaminophen 325 mg tablet Take 1-2 tablets by mouth every 4 hours as needed. FOR PAIN. PAST HISTORY: PAST MEDICAL HISTORY Diagnosis Date Melanoma (HCC) 11/01/13 removal of parodid gland PAST SURGICAL HISTORY Procedure Laterality Date PAST SURGICAL HISTORY OF age 2 oral surgery PAST SURGICAL HISTORY OF age 17 left jaw surgery post fracture (tripod fracture) TONSILLECTOMY PRIMARY/SECONDARY <AGE 10 age 9 FAMILY HISTORY Problem Relation Age of Onset Cancer Father kidney Breast Cancer Mother Cancer Sister skin, unsure type Diabetes Other none Coronary Artery Disease Other none other (tuberculosis [Other]) Father Social History Tobacco Use Smoking status: Never Smokeless tobacco: Never Vaping Use Vaping Use: Never used Substance Use Topics Alcohol use: Yes Comment: occasional Drug use: No PHYSICAL EXAMINATION: BP 138/92 Ht 179.1 cm (5' 10.5 ) Wt 129.3 kg (285 lb) BMI 40.32 kg/m Genitourinary: (1) Rectal: . (2) CVA: . (3) Genital: . (4) Gonads: . (5) Other: . Constitutional: In no acute distress. Well appearing. Respiratory: Normal respiratory effort without use of accessory muscles. Musculoskeletal: Normal gait and station Cardiovascular: Gastrointestinal: DATA: Clinic: URINALYSIS: N/a Laboratory: Creatinine Date Value Ref Range Status 12/18/2022 1.03 0.73 - 1.22 mg/dL Final 12/18/2021 0.97 0.73 - 1.22 mg/dL Final 12/28/2020 0.82 0.73 - 1.22 mg/dL Final 12/20/2019 0.73 0.73 - 1.22 mg/dL Final PSA: No results found for: PSA Cultures: No flowsheet data found. Susceptibility Tests - Past 1 Year No results found for the last 365 days. MEDICAL DECISION MAKING PROBLEM(S): 1 or more, chronic, unstable problem(s) (4) DATA: Category 1 Review of test result(s): Ordering of test(s): Review of prior external note: Independent historian: Category 2 Independent interpretation of test: Category 3 Discussion of management or test interpretation: RISK: Moderate (i.e. prescription drug management; minor surgery with patient or procedure risk factors; elective major surgery without patient or procedure risk factors; management limited by social determinants or health) I have reviewed the problem list, family history, and social history documented by my ancillary staff. Lacy Franco MD Staff Urologist documented in this encounter [facility] 02-04-2023 Note HNO ID: [id number] Author: RT Ashlyn(R) Service: ? Author Type: Heavy Forging Machine Operator Type: Progress Notes Filed: 02/04/2023 2:45 PM Note Text: Radiology Service Progress Note DATE OF SERVICE: February 04, 2023 TIME: 2:45 PM PATIENT IDENTITY VERIFICATION COMPLETED USING TWO (2) STANDARD IDENTIFIERS: Name and Date of confirmed by patient verbally. FALL SCREENING: Has the patient had 2 falls in the last year or 1 fall with injury or currently using an Ambulatory Assistive Device (Walker, Cane, Wheelchair, Crutches, etc.)? No PATIENT GENDER DATA: Male PATIENT RELEVANT IMPLANT DATA REVIEWED: Yes ALLERGIES: Reviewed and unchanged CONTRAST ALLERGY: NO. EXAM: CT -CONTRAST INDUCED NEPHROPATHY RISK FACTORS: Patient age > 60 years CREATININE: Creatinine Date Value Ref Range Status 12/18/2022 1.03 0.73 - 1.22 mg/dL Final 12/18/2021 0.97 0.73 - 1.22 mg/dL Final 12/28/2020 0.82 0.73 - 1.22 mg/dL Final Estimated Glomerular Filtration Rate Date Value Ref Range Status 12/18/2022 84 >=60 mL/min/1.73m? Final Comment: Estimated Glomerular Filtration Rate (eGFR) is calculated using the 2020 CKD-EPI creatinine equation. This equation utilizes serum creatinine, sex, and age as parameters. The creatinine assay has traceable calibration to isotope dilution-mass spectrometry. Refer to KDIGO guidelines for clinical interpretation. In patients with unstable renal function, e.g. those with acute kidney injury, the eGFR may not accurately reflect actual GFR. eGFR- Date Value Ref Range Status 12/28/2020 >60 Final P.O.C.T. RESULTS: POC done: Yes, See Lab Tab February 04, 2023 TREATMENT: N/A PERIPHERAL IV DATA: Ambulatory: A peripheral IV was started in the Left antecubital site with a Angio cath: 18 gauge. RADIOLOGY DEPARTMENT: CT; Exam(s) Completed: Kidney SIGNATURE: RT Iman(R) PATIENT NAME: Yoko Rivera DATE: February 04, 2023 TIME: 2:45 PM [facility] 02-04-2023 History of Present illness Narrative Radiology Service Progress Note DATE OF SERVICE: February 04, 2023 TIME: 2:45 PM PATIENT IDENTITY VERIFICATION COMPLETED USING TWO (2) STANDARD IDENTIFIERS: Name and Date of confirmed by patient verbally. FALL SCREENING: Has the patient had 2 falls in the last year or 1 fall with injury or currently using an Ambulatory Assistive Device (Walker, Cane, Wheelchair, Crutches, etc.)? No PATIENT GENDER DATA: Male PATIENT RELEVANT IMPLANT DATA REVIEWED: Yes ALLERGIES: Reviewed and unchanged CONTRAST ALLERGY: NO. EXAM: CT -CONTRAST INDUCED NEPHROPATHY RISK FACTORS: Patient age > 60 years CREATININE: Creatinine Date Value Ref Range Status 12/18/2022 1.03 0.73 - 1.22 mg/dL Final 12/18/2021 0.97 0.73 - 1.22 mg/dL Final 12/28/2020 0.82 0.73 - 1.22 mg/dL Final Estimated Glomerular Filtration Rate Date Value Ref Range Status 12/18/2022 84 >=60 mL/min/1.73m Final Comment: Estimated Glomerular Filtration Rate (eGFR) is calculated using the 2020 CKD-EPI creatinine equation. This equation utilizes serum creatinine, sex, and age as parameters. The creatinine assay has traceable calibration to isotope dilution-mass spectrometry. Refer to KDIGO guidelines for clinical interpretation. In patients with unstable renal function, e.g. those with acute kidney injury, the eGFR may not accurately reflect actual GFR. eGFR- Date Value Ref Range Status 12/28/2020 >60 Final P.O.C.T. RESULTS: POC done: Yes, See Lab Tab February 04, 2023 TREATMENT: N/A PERIPHERAL IV DATA: Ambulatory: A peripheral IV was started in the Left antecubital site with a Angio cath: 18 gauge. RADIOLOGY DEPARTMENT: CT; Exam(s) Completed: Kidney SIGNATURE: RT Iman(R) PATIENT NAME: Yoko Rivera DATE: February 04, 2023 TIME: 2:45 PM documented in this encounter [facility] 2023 Miscellaneous Notes Spoke with pt. Informed once he decides who his PCP will be we can then send office notes. Pt. Voiced understanding. Amelia Blue LPN Spoke with patient and scheduled CT Thank you. He should let us know once he is established with a new PCP and we can forward records. Saeed Duke DO Spoke with pt. He has never seen a Physician Gynecologist, prefers to stay Local and his PCP was Dr. Gupta who is no longer practicing. He does however plan on getting established with one of the other physicians in the [facility] group. PSS please schedule ct scan of kidney and notify pt. Amelia Blue LPN Let her know the MRI of the abdomen did not show any abnormality in the liver suggestive of cancer. Still reveals cirrhotic changes. Has he seen a commercial credit analyst? Who is his new PCP? There is a cyst on the right kidney that needs further evaluation with a dedicated CT of the kidneys. Order filed. Saeed Duke DO documented in this encounter [facility] 01-16-2023 Note HNO ID: [id number] Author: RT Edwardo(R) Service: ? Author Type: Technologist Type: Progress Notes Filed: 01/16/2023 3:12 PM Note Text: Radiology Service Progress Note DATE OF SERVICE: January 16, 2023 TIME: 3:12 PM PATIENT IDENTITY VERIFICATION COMPLETED USING TWO (2) STANDARD IDENTIFIERS: Name and Date of confirmed by patient verbally. FALL SCREENING: Has the patient had 2 falls in the last year or 1 fall with injury or currently using an Ambulatory Assistive Device (Walker, Cane, Wheelchair, Crutches, etc.)? No PATIENT GENDER DATA: Male PATIENT RELEVANT IMPLANT DATA REVIEWED: Yes ALLERGIES: Reviewed and unchanged CONTRAST ALLERGY: NO. EXAM: MRI - CONTRAST TYPE: GROUP II PERIPHERAL IV DATA: Ambulatory: A peripheral IV was started in the Right antecubital site with a Angio cath: 22 gauge. RADIOLOGY DEPARTMENT: MR; Exam(s) Completed: Body: Liver (routine) SIGNATURE: RT Edwardo(R) PATIENT NAME: Yoko Rivera DATE: January 16, 2023 TIME: 3:12 PM [facility] 12-20-2022 Note HNO ID: [id number] Author: Saeed Duke DO Service: ? Author Type: Physician Type: Progress Notes Filed: 12/20/2022 11:10 AM Note Text: Oncologic problem(s): 1) Stage IIIB melanoma. 2) Left leg DVT 01/2018. HPI: The patient is a 57 yo male who has a h/o of a mole on the right tragus. He would occasionally pick at it causing some irritation and bleeding. In the fall of 2012, he noticed a lump just posterior and inferior to the earlobe. He brought the lump to the attention of his primary care doctor in February 2013 when he was seen for routine physical exam. An ultrasound was obtained which demonstrated a 1.9 x 1.4 x 1.1 cm solid hypoechoic probable subcutaneous lymph node. he was referred to an ENT surgeon. He underwent an FNA of the lymph node on 06-25-13. The sample on pathologic review revealed atypical cells with an epithelioid morphology highly suspicious for carcinoma. Immunohistochemistry studies suggested the possibility of metastatic melanoma. 07-15-13, he underwent a biopsy of the mole of the right tragus. The pathology was consistent with a traumatized and inflamed compound nevus. The pathologist's comment reflected that the lesion was an atypical compound melanocytic proliferation with associated brisk lymphoid infiltrate. The melanocytes were predominantly nested. Dermal component contained melanocytes with round nuclei and abundant cytoplasm embedded in a fibrotic stroma and associated with dense inflammation. Focally these melanocytes appear to be somewhat atypical with enlarged nuclei and hyperchromasia. An S100 stain showed several masslike foci of melanocytes engulfed of inflammation. The specimen was sent for outside review. S100 immunostains were repeated and that procedure highlighted a large, single nest of melanocytes with an stock hanger growth pattern a of melanocytic nests. The patient was referred to [facility]. It was recommended that he undergo wide local excision of the melanocytic lesion of the tragus. He underwent that surgery along with a right superficial parotidectomy, right selective neck dissection and full thickness skin graft of the preauricular defect on 11-01-13. The final pathologic review revealed metastatic melanoma in 1 of 9 periparotid lymph nodes. In total, 93 lymph nodes were retrieved from the neck dissection none of which harbored malignancy. The skin of the right tragus revealed a dermal nevus. The inked margins were free and the planes the sections examined. Recovered from surgery well. Had stress/echo--normal. Received cycle #4 Yervoy 02/24/2014. Was started on hydrocortisone and levothyroxine 04/23/2014 for adrenal insufficiency (low cortisol with declining ACTH and low TSH). noticed swelling of his left leg in January 2018 that occurred about a week following a [address] to [place]. Patient had no pain or respiratory symptoms. An ultrasound was performed that demonstrated that within the left femoral, popliteal and tibialis posterior trunk as well as posterior tibial vein was acute DVT. He was started on anticoagulation with Eliquis. Swelling had considerably subsided although not completely resolved at time of evaluation here. He had no pain. No unusual bleeding or unexplained bruising. At the time of his last visit, he endorsed he had stopped hydrocortisone for a few weeks several months previously and felt a lot of fatigue and malaise and restarted drug and felt better. 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 diff. He developed diarrhea and fever a day after the trip and was admitted to [facility] with sepsis secondary to C. difficile colitis and Lyme disease (although patient questions this). Details of that hospitalization are not available at this time. He went back to the ED at [facility] on 04/30 with fever and epigastric pain. Febrile with temp to 39 ?C and tachycardic. CT of abdomen and pelvis revealed mild pancreatic inflammation consistent with acute pancreatitis as well as portal vein thrombosis. He was initiated on a heparin drip. He was changed from Zosyn to meropenem for acute pancreatitis and was continued on oral vancomycin for previous C. difficile infection. Evidently continue to improve. He was transitioned to [facility]. He was seen by Dr. Mcnally in early November for complaints of not feeling well. He had about a month long history of flulike symptoms including episodic low-grade fever as well as joint pain and body aches associated with chills. Evidently fever had subsided. He was also having episodic diarrhea with loss of appetite and low-grade nausea. Morning stiffness was a significant unrelenting symptom and he had been noted to have stopped hydrocortisone but not stopped levothyroxine. He was advised to restart hydrocortisone. Evidently comprehensive lab work was obtai (more content not included)... [facility] 12-18-2022 Note HNO ID: [id number] Author: RT Ashlyn(R) Service: ? Author Type: Heavy Forging Machine Operator Type: Progress Notes Filed: 12/18/2022 11:01 AM Note Text: Radiology Service Progress Note DATE OF SERVICE: December 18, 2022 TIME: 11:01 AM PATIENT IDENTITY VERIFICATION COMPLETED USING TWO (2) STANDARD IDENTIFIERS: Name and Date of confirmed by patient verbally. FALL SCREENING: Has the patient had 2 falls in the last year or 1 fall with injury or currently using an Ambulatory Assistive Device (Walker, Cane, Wheelchair, Crutches, etc.)? No PATIENT GENDER DATA: Male PATIENT RELEVANT IMPLANT DATA REVIEWED: Yes ALLERGIES: Reviewed and unchanged CONTRAST ALLERGY: NO. EXAM: CT -CONTRAST INDUCED NEPHROPATHY RISK FACTORS: Not applicable CREATININE: Creatinine Date Value Ref Range Status 12/18/2022 1.03 0.73 - 1.22 mg/dL Final 12/18/2021 0.97 0.73 - 1.22 mg/dL Final 12/28/2020 0.82 0.73 - 1.22 mg/dL Final Estimated Glomerular Filtration Rate Date Value Ref Range Status 12/18/2022 84 >=60 mL/min/1.73m? Final Comment: Estimated Glomerular Filtration Rate (eGFR) is calculated using the 2020 CKD-EPI creatinine equation. This equation utilizes serum creatinine, sex, and age as parameters. The creatinine assay has traceable calibration to isotope dilution-mass spectrometry. Refer to KDIGO guidelines for clinical interpretation. In patients with unstable renal function, e.g. those with acute kidney injury, the eGFR may not accurately reflect actual GFR. eGFR- Date Value Ref Range Status 12/28/2020 >60 Final P.O.C.T. RESULTS: POC done: Yes, See Lab Tab December 18, 2022 TREATMENT: N/A PERIPHERAL IV DATA: Ambulatory: A peripheral IV was started in the Left antecubital site with a Angio cath: 22 gauge. RADIOLOGY DEPARTMENT: CT; Exam(s) Completed: Chest Abdomen Pelvis and Neck SIGNATURE: RT Iman(R) PATIENT NAME: Yoko Rivera DATE: December 18, 2022 TIME: 11:01 AM [facility] 12-18-2022 History of Present illness Narrative Radiology Service Progress Note DATE OF SERVICE: December 18, 2022 TIME: 11:01 AM PATIENT IDENTITY VERIFICATION COMPLETED USING TWO (2) STANDARD IDENTIFIERS: Name and Date of confirmed by patient verbally. FALL SCREENING: Has the patient had 2 falls in the last year or 1 fall with injury or currently using an Ambulatory Assistive Device (Walker, Cane, Wheelchair, Crutches, etc.)? No PATIENT GENDER DATA: Male PATIENT RELEVANT IMPLANT DATA REVIEWED: Yes ALLERGIES: Reviewed and unchanged CONTRAST ALLERGY: NO. EXAM: CT -CONTRAST INDUCED NEPHROPATHY RISK FACTORS: Not applicable CREATININE: Creatinine Date Value Ref Range Status 12/18/2022 1.03 0.73 - 1.22 mg/dL Final 12/18/2021 0.97 0.73 - 1.22 mg/dL Final 12/28/2020 0.82 0.73 - 1.22 mg/dL Final Estimated Glomerular Filtration Rate Date Value Ref Range Status 12/18/2022 84 >=60 mL/min/1.73m Final Comment: Estimated Glomerular Filtration Rate (eGFR) is calculated using the 2020 CKD-EPI creatinine equation. This equation utilizes serum creatinine, sex, and age as parameters. The creatinine assay has traceable calibration to isotope dilution-mass spectrometry. Refer to KDIGO guidelines for clinical interpretation. In patients with unstable renal function, e.g. those with acute kidney injury, the eGFR may not accurately reflect actual GFR. eGFR- Date Value Ref Range Status 12/28/2020 >60 Final P.O.C.T. RESULTS: POC done: Yes, See Lab Tab December 18, 2022 TREATMENT: N/A PERIPHERAL IV DATA: Ambulatory: A peripheral IV was started in the Left antecubital site with a Angio cath: 22 gauge. RADIOLOGY DEPARTMENT: CT; Exam(s) Completed: Chest Abdomen Pelvis and Neck SIGNATURE: RT Iman(R) PATIENT NAME: Yoko Rivera DATE: December 18, 2022 TIME: 11:01 AM documented in this encounter [facility] 12-10-[address], Lab and OV scheduled with patient. documented in this encounter [facility] 04-05-2022 Miscellaneous Notes rx request of Patrick olea. Ivory Dorman LPN documented in this encounter [facility] 12-21-2021 History of Present illness Narrative [facility] # / IRB #: [id number] Patient Study ID:[id number] Came in for patient follow-up and introduced myself since changeover from prior research nurse. Patient denies and questions or concerns at this time. Patient states, I am feeling good. I can't complain . Patient given my business card and contact information. DORIS Damon, RN [phone] documented in this encounter [facility] 12-21-2021 History of Present illness Narrative Oncologic problem(s): 1) Stage IIIB melanoma. 2) Left leg DVT 01/2018. HPI: The patient is a 56 yo male who has a h/o of a mole on the right tragus. He would occasionally pick at it causing some irritation and bleeding. In the fall of 2012, he noticed a lump just posterior and inferior to the earlobe. He brought the lump to the attention of his primary care doctor in February 2013 when he was seen for routine physical exam. An ultrasound was obtained which demonstrated a 1.9 x 1.4 x 1.1 cm solid hypoechoic probable subcutaneous lymph node. he was referred to an ENT surgeon. He underwent an FNA of the lymph node on 06-25-13. The sample on pathologic review revealed atypical cells with an epithelioid morphology highly suspicious for carcinoma. Immunohistochemistry studies suggested the possibility of metastatic melanoma. 07-15-13, he underwent a biopsy of the mole of the right tragus. The pathology was consistent with a traumatized and inflamed compound nevus. The pathologist's comment reflected that the lesion was an atypical compound melanocytic proliferation with associated brisk lymphoid infiltrate. The melanocytes were predominantly nested. Dermal component contained melanocytes with round nuclei and abundant cytoplasm embedded in a fibrotic stroma and associated with dense inflammation. Focally these melanocytes appear to be somewhat atypical with enlarged nuclei and hyperchromasia. An S100 stain showed several masslike foci of melanocytes engulfed of inflammation. The specimen was sent for outside review. S100 immunostains were repeated and that procedure highlighted a large, single nest of melanocytes with an stock hanger growth pattern a of melanocytic nests. The patient was referred to [facility]. It was recommended that he undergo wide local excision of the melanocytic lesion of the tragus. He underwent that surgery along with a right superficial parotidectomy, right selective neck dissection and full thickness skin graft of the preauricular defect on 11-01-13. The final pathologic review revealed metastatic melanoma in 1 of 9 periparotid lymph nodes. In total, 93 lymph nodes were retrieved from the neck dissection none of which harbored malignancy. The skin of the right tragus revealed a dermal nevus. The inked margins were free and the planes the sections examined. Recovered from surgery well. Had stress/echo--normal. Received cycle #4 Yervoy 02/24/2014. Was started on hydrocortisone and levothyroxine 04/23/2014 for adrenal insufficiency (low cortisol with declining ACTH and low TSH). noticed swelling of his left leg in January 2018 that occurred about a week following a [address] to [place]. Patient had no pain or respiratory symptoms. An ultrasound was performed that demonstrated that within the left femoral, popliteal and tibialis posterior trunk as well as posterior tibial vein was acute DVT. He was started on anticoagulation with Eliquis. Swelling had considerably subsided although not completely resolved at time of evaluation here. He had no pain. No unusual bleeding or unexplained bruising. At the time of his last visit, he endorsed he had stopped hydrocortisone for a few weeks several months previously and felt a lot of fatigue and malaise and restarted drug and felt better. 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 diff. He developed diarrhea and fever a day after the trip and was admitted to [facility] with sepsis secondary to C. difficile colitis and Lyme disease (although patient questions this). Details of that hospitalization are not available at this time. He went back to the ED at [facility] on 04/30 with fever and epigastric pain. Febrile with temp to [address] of abdomen and pelvis revealed mild pancreatic inflammation consistent with acute pancreatitis as well as portal vein thrombosis. He was initiated on a heparin drip. He was changed from Zosyn to meropenem for acute pancreatitis and was continued on oral vancomycin for previous C. difficile infection. Evidently continue to improve. He was transitioned to Eliquis. He was seen by Dr. Mcnally in early November for complaints of not feeling well. He had about a month long history of flulike symptoms including episodic low-grade fever as well as joint pain and body aches associated with chills. Evidently fever had subsided. He was also having episodic diarrhea with loss of appetite and low-grade nausea. Morning stiffness was a significant unrelenting symptom and he had been noted to have stopped hydrocortisone but not stopped levothyroxine. He was advised to restart hydrocortisone. Evidently comprehensive lab work was obtained for rheumatologic disorder. I do not have available what was ordered or the results. He had a recent CBC which demonstrated a white count of 5300. Differential remarkable only for very mild increase in basophils at 1.1%. (Top range normal for lab is 1%). Hemoglobin was 12.6 g/dL. MCV 82.2. Platelet count 234,000. ANC 2400. Ferritin slightly elevated at 399 ng/mL. Had surveillance CT scans of the neck, chest, abdomen and pelvis. Presents for ongoing oncologic management. Interim history: He offers no complaints today. Still sees a side stapler on a regular basis. He has no new or concerning moles or skin lesions. His insurance required rotating from apixaban to Xarelto. He continues on once daily without any unusual bleeding or unexplained bruising. Uses his compression stockings quite a bit now. He says they make his legs feel a lot better when he uses them. Continues on hydrocortisone. When he try stopping it he gets significant malaise. Previous symptoms of neuropathy have resolved. PMH, medications and allergies as below personally reviewed by me today. Any changes documented in appropriate section. ROS: Constitutional: Denies episodes of fever and night sweats. Neuro: Denies MI, vertigo, dizziness and imbalance. HEENT: No recent change in voice, vision or hearing. Resp: Denies cough, wheeze and hemoptysis. CVS: Denies exertional chest pain, PND and orthopnea. GI: Denies dysgeusia. Denies symptoms of stomatitis. Denies dysphagia and odynophagia. : Denies dysuria or gross hematuria. No symptoms of bladder outlet obstruction. Endo: Denies hot flashes. Denies polyuria and polydipsia. Denies heat and cold intolerance. Musculoskeletal: Denies bone, back, joint and muscular pain. Derm: See above. Heme: See above. Psych: Normal mood. PHYSICAL EXAM: Vitals: Blood pressure 138/78, pulse 69, temperature (!) 35.8 C (96.5 F), weight 132 kg (291 lb), SpO2 98 %. Well-appearing and in no acute distress. EYES: Sclerae are anicteric bilaterally. NECK: Right tragus scar and right neck scar are unchanged. No induration; generalized swelling along the area of the mid scar. No discrete mass or nodule appreciated. LYMPHATIC: There is no palpable supraclavicular adenopathy. RESPIRATORY: Inspiratory breath sounds are of normal intensity in all arreola. No rales, wheezes or rhonchi. CARDIOVASCULAR: Rhythm is regular. Normal intensity S1/S2. There is no gallop or murmur. ABDOMEN: The abdomen is nondistended. No organomegaly. No tenderness. Extremities: There is mild swelling of both lower extremities with the left worse than the right. SKIN: No jaundice or rash. No petechiae. NEUROLOGIC: animal control supervisor II-XII are grossly intact. No focal motor weakness. MUSCULOSKELETAL: No muscle wasting. LABS: Component Latest Ref Rng & Units 12/18/2021 WBC 3.70 - 11.00 k/uL 7.27 RBC 4.20 - 6.00 m/uL 5.03 Hemoglobin 13.0 - 17.0 g/dL 14.5 Hematocrit 39.0 - 51.0 % 41.1 MCV 80.0 - 100.0 fL 81.7 MCH 26.0 - 34.0 pg 28.8 MCHC 30.5 - 36.0 g/dL 35.3 RDW-CV 11.5 - 15.0 % 14.5 Platelet Count 150 - 400 k/uL 147 (L) MPV 9.0 - 12.7 fL 9.5 Neut% % 77.5 Abs Neut (ANC) 1.45 - 7.50 k/uL 5.64 Lymph% % 16.9 Abs Lymph 1.00 - 4.00 k/uL 1.23 [place]% % 3.7 Abs [place] <0.87 k/uL 0.27 Eosin% % 0.6 Abs Eosin <0.46 k/uL 0.04 Baso% % 1.0 Abs Baso <0.11 k/uL 0.07 Immature Gran % % 0.3 IMMATURE GRANS (ABS) <0.10 k/uL <0.03 NRBC /100 WBC 0.0 Absolute nRBC <0.01 k/uL <0.01 DTYPE Auto Protein, Total 6.3 - 8.0 g/dL 6.7 Albumin 3.9 - 4.9 g/dL 4.2 Calcium 8.5 - 10.2 mg/dL 8.9 Bilirubin, Total 0.2 - 1.3 mg/dL 0.7 Alkaline Phosphatase 38 - 113 U/L 52 AST 14 - 40 U/L 27 ALT 10 - 54 U/L 25 Glucose 74 - 99 mg/dL 124 (H) BUN 9 - 24 mg/dL 12 Creatinine 0.73 - 1.22 mg/dL 0.97 Sodium 136 - 144 mmol/L 136 Potassium 3.7 - 5.1 mmol/L 3.8 Chloride 97 - 105 mmol/L 101 CO2 22 - 30 mmol/L 27 Anion Gap 9 - 18 mmol/L 8 (L) eGFR >=60 mL/min/1.73m 90 Bilirubin, Conjug <0.2 mg/dL 0.2 (H) LD 135 - 225 U/L 154 ASSESSMENT/PLAN: (C43.4) Malignant melanoma of neck (HCC) (primary encounter diagnosis) (R93.2) Abnormal CT of liver (I81) Portal vein thrombosis (I82.512) Chronic deep vein thrombosis (DVT) of left femoral vein (HCC) (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 -KPS is 100% -Adjuvant Yervoy discontinued due to grade 2 neuropathy. -No concerning symptoms or exam findings in regards to melanoma. -Reviewed CT results with him. Liver now with more convincing cirrhotic morphology. Sequela of portal vein thrombosis. LUIS with respect to melanoma. -He is now on nearly 8 years out from treatment. Discussed today annual CT up to year 10 then stopping. Plan: -Continue Eliquis. -Encouraged him to continue wearing compression stockings. -Again encouraged him to talk with his PCP about referral to commercial credit analyst. -Lab work and CTs followed by office visit in about a year. 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 Plan: -Continue current dose of hydrocortisone and Synthroid. Portions of this documentation were copied and pasted from previous office visit notes in order to provide a cohesive continuity of the history. The note has been reviewed and edited and updated as necessary. During this patient visit I have spent approximately 20 minutes out of 25 in counseling regarding medications and test results and coordinating care. Saeed Duke DO documented in this encounter [facility] 12-18-2021 History of Present illness Narrative Radiology Service Progress Note PATIENT NAME: Yoko Rivera DATE OF SERVICE: December 18, 2021 TIME: 12:45 PM PATIENT IDENTITY VERIFICATION COMPLETED USING TWO (2) IDENTIFIERS: Name and Date of confirmed by patient verbally. FALL SCREENING: Has the patient had 2 falls in the last year or 1 fall with injury or currently using an Ambulatory Assistive Device (Walker, Cane, Wheelchair, Crutches, etc.)? No PATIENT GENDER DATA: Male PATIENT RELEVANT IMPLANT DATA REVIEWED: Not Applicable RADIOLOGY DEPARTMENT: CT; Exam(s) Completed: Chest Abdomen Pelvis PERIPHERAL IV DATA: Not applicable SIGNED BY: RT mIan(R) December 18, 2021 12:45 PM documented in this encounter [facility] 12-17-2021 Miscellaneous Notes SPOKE TO PT AND SCHEDULED. Milly Miguel Lm for pt to call back to schedule OV after his CT. Milly Miguel documented in this encounter [facility] documented as of this encounter (statuses as of 12/17/2021) [facility]24-2018 History of Past illness Narrative* Problem Noted Date Resolved Date DVT of axillary vein, chronic left 07/08/2018 07/08/2018 documented as of this encounter (statuses as of 12/19/2021) [facility]2018 History of Past illness Narrative* Problem Noted Date Resolved Date DVT of axillary vein, chronic left 07/08/2018 07/08/2018 documented as of this encounter (statuses as of 12/19/2021) [address]24-2018 History of Past illness Narrative* Problem Noted Date Resolved Date DVT of axillary vein, chronic left 07/08/2018 07/08/2018 documented as of this encounter (statuses as of 12/21/2021) [address]24-2018 History of Past illness Narrative* Problem Noted Date Resolved Date DVT of axillary vein, chronic left 07/08/2018 07/08/2018 documented as of this encounter (statuses as of 12/31/2021) [address]24-2018 History of Past illness Narrative* Problem Noted Date Resolved Date DVT of axillary vein, chronic left 07/08/2018 07/08/2018 documented as of this encounter (statuses as of 04/07/2022) [address]24-2018 History of Past illness Narrative* Problem Noted Date Resolved Date DVT of axillary vein, chronic left 07/08/2018 07/08/2018 documented as of this encounter (statuses as of 10/31/2022) [address]24-2018 History of Past illness Narrative* Problem Noted Date Resolved Date DVT of axillary vein, chronic left 07/08/2018 07/08/2018 documented as of this encounter (statuses as of 2023) [address]24-2018 History of Past illness Narrative* Problem Noted Date Resolved Date DVT of axillary vein, chronic left 07/08/2018 07/08/2018 documented as of this encounter (statuses as of 02/28/2023) [address]24-2018 History of Past illness Narrative* Problem Noted Date Diagnosed Date Resolved Date DVT of axillary vein, chronic left 07/08/2018 07/08/2018 documented as of this encounter (statuses as of 03/24/2023) [address]24-2018 History of Past illness Narrative* Problem Noted Date Diagnosed Date Resolved Date DVT of axillary vein, chronic left 07/08/2018 07/08/2018 documented as of this encounter (statuses as of 04/09/2023) [address]24-2018 History of Past illness Narrative* Problem Noted Date Diagnosed Date Resolved Date DVT of axillary vein, chronic left 07/08/2018 07/08/2018 documented as of this encounter (statuses as of 05/01/2023) [facility] History of Past illness Narrative* Problem Noted Date Diagnosed Date Resolved Date DVT of axillary vein, chronic left 07/08/2018 07/08/2018 documented as of this encounter (statuses as of 05/15/2023) [facility] History of Past illness Narrative* Problem Noted Date Diagnosed Date Resolved Date DVT of axillary vein, chronic left 07/08/2018 07/08/2018 documented as of this encounter (statuses as of 07/20/2023) [facility] History of Past illness Narrative* Problem Noted Date Diagnosed Date Resolved Date DVT of axillary vein, chronic left 07/08/2018 07/08/2018 documented as of this encounter (statuses as of 07/20/2023) [facility] History of Past illness Narrative* Problem Noted Date Diagnosed Date Resolved Date DVT of axillary vein, chronic left 07/08/2018 07/08/2018 documented as of this encounter (statuses as of 07/20/2023) [facility] History of Past illness Narrative* Problem Noted Date Diagnosed Date Resolved Date DVT of axillary vein, chronic left 07/08/2018 07/08/2018 documented as of this encounter (statuses as of 08/18/2023) [facility] History of Past illness Narrative* Problem Noted Date Diagnosed Date Resolved Date DVT of axillary vein, chronic left 07/08/2018 07/08/2018 documented as of this encounter (statuses as of 08/22/2023) [address]24-2018 History of Past illness Narrative* Problem Noted Date Diagnosed Date Resolved Date DVT of axillary vein, chronic left 07/08/2018 07/08/2018 documented as of this encounter (statuses as of 08/22/2023) [facility] Diagnosis Malignant melanoma of skin (HCC) Melanoma of skin, site unspecified [facility] Diagnosis Malignant melanoma of skin (HCC)- Primary Melanoma of skin, site unspecified Leg swelling Swelling of limb Chronic deep vein thrombosis (DVT) of proximal vein of both lower extremities (HCC) [facility]* Diagnosis Examination of participant in clinical trial- Primary [facility]* Diagnosis Hypopituitarism (HCC) Panhypopituitarism [facility] Diagnosis Acquired cyst of kidney- Primary [facility] Diagnosis Right renal mass- Primary Unspecified disorder of kidney and ureter documented in this encounter [facility]* Diagnosis Right renal mass- Primary Unspecified disorder of kidney and ureter Complex renal cyst Other specified congenital cystic kidney disease Kidney mass Unspecified disorder of kidney and ureter [facility] Diagnosis Right renal mass- Primary Unspecified disorder of kidney and ureter Complex renal cyst Other specified congenital cystic kidney disease [facility]* Diagnosis Malignant melanoma of skin (HCC) Melanoma of skin, site unspecified [facility] Diagnosis Acquired cyst of kidney [facility] Diagnosis Malignant melanoma of skin (HCC) Melanoma of skin, site unspecified documented in this encounter [facility] note* Diagnosis 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- Primary Other specified congenital cystic kidney disease History of kidney cancer Personal history of malignant neoplasm of kidney documented in this encounter [facility] note* Diagnosis Complex renal cyst- Primary Other specified congenital cystic kidney disease History of kidney cancer Personal history of malignant neoplasm of kidney Acquired cyst of kidney documented in this encounter [facility] for referral (narrative)* Outpatient Procedure (Routine) - Pending Review Specialty Diagnoses / Procedures Referred By Juan patrick [facility] Diagnoses Right renal mass Procedures ECG COMPLETE ECG ROUTINE ECG W/LEAST 12 LDS W/I&R Lacy Franco MD [address] [place] [id number] [facility] [address] [place] [address] Referral ID Status Reason Start Date Expiration Date Visits Requested Visits Authorized [id number] Pending Review Auto-Generat ed Referral 03/14/2023 02/28/2024 1 1 [facility] for referral (narrative)* Diagnostic Procedure Only (Routine) - Pending Review Specialty Diagnoses / Procedures Referred By Juan patrick Referred To Contact US IMAGING Diagnoses Complex renal cyst Procedures US KIDNEY/BLADDER US RETROPERITONEAL REAL TIME W/IMAGE COMPLETE Lacy Franco MD [address] [place] [address] [place] [address] Referral ID Status Reason Start Date Expiration Date Visits Requested Visits Authorized [id number] Pending Review Auto-Generat ed Referral 3 06/13/2024 1 1 [facility] Summary Purpose Family History No Family History Records FoundNo Family History Records FoundNo Family History Records FoundNo Family History Records FoundNo Family History Records Found Advance Directives No Advanced Directives Records FoundNo Advanced Directives Records FoundNo Advanced Directives Records FoundNo Advanced Directives Records FoundNo Advanced Directives Records Found Reason for Referral Specialty Diagnoses / Procedures Referred By Contac t Referred To Contact CT IMAGING Diagnoses Malignant melanoma of skin (HCC) Procedures CT ABD/PEL WO IVCON CT ABD & PELVIS W/O CONTRAST Saeed Duke, DO [address] [place] [address] Ct Imaging Referral ID Status Reason Start Date Expiration Date V isits Requested Visits Authorized [id number] Closed Auto-Generate d Referral 12/14/2021 12/27/2022 1 1 Specialty Diagnoses / Procedures Referred By Contac t Referred To Contact CT IMAGING Diagnoses Malignant melanoma of skin (HCC) Procedures CT NECK SOFT TISSUE W IVCON CT SOFT TISSUE NECK W/CONTRAST MATERIAL Saeed Duke, DO [address] [place] [address] Ct Imaging Referral ID Status Reason Start Date Expiration Date V isits Requested Visits Authorized [id number] Closed Auto-Generate d Referral 12/14/2021 12/27/2022 1 1 Specialty Diagnoses / Procedures Referred By Contac t Referred To Contact CT IMAGING Diagnoses Malignant melanoma of skin (HCC) Procedures CT CHEST WO IVCON DIAGNOSTIC COMPUTED TOMOGRAPHY THORAX W/O CNTRST Saeed Duke, DO [address] [place] [address] Ct Imaging Referral ID Status Reason Start Date Expiration Date V isits Requested Visits Authorized [id number] Closed Auto-Generate d Referral 12/14/2021 12/27/2022 1 1 Referral ID Status Reason Start Date Expiration Date Visits Requested Visits Authorized [id number] Pending Review Auto-Generat ed Referral 12/21/2021 01/20/2023 1 1 Referral ID Status Reason Start Date Expiration Date Visits Requested Visits Authorized [id number] Pending Review Auto-Generat ed Referral 12/21/2021 01/20/2023 1 1 Referral ID Status Reason Start Date Expiration Date Visits Requested Visits Authorized [id number] Pending Review Auto-Generat ed Referral 12/21/2021 01/20/2023 1 1 Specialty Diagnoses / Procedures Referred By Contac t Referred To Contact CT IMAGING Diagnoses Acquired cyst of kidney Procedures CT KIDNEY WO/W IVCON CT ABDOMEN W & W/O CONTRAST Saeed Duke, DO [address] [place] [address] Ct Imaging Referral ID Status Reason Start Date Expiration Date Visits Requested Visits Authorized [id number] Authorized Auto-Generat ed Referral 01/25/2023 02/24/2024 1 1 Specialty Diagnoses / Procedures Referred By Contac t Referred To Contact CT IMAGING Diagnoses Malignant melanoma of skin (HCC) Procedures CT NECK SOFT TISSUE W IVCON CT SOFT TISSUE NECK W/CONTRAST MATERIAL Saeed Duke, DO [address] [place] [address] [place] [address] Referral ID Status Reason Start Date Expiration Date V isits Requested Visits Authorized [id number] Closed Auto-Generate d Referral 12/21/2021 01/20/2023 1 1 Specialty Diagnoses / Procedures Referred By Contac t Referred To Contact CT IMAGING Diagnoses Acquired cyst of kidney Procedures CT KIDNEY WO/W IVCON CT ABDOMEN W & W/O CONTRAST Saeed Duke, DO [address] [place] [address] [place] [address] Referral ID Status Reason Start Date Expiration Date V isits Requested Visits Authorized [id number] Closed Auto-Generate d Referral 01/25/2023 02/24/2024 1 1 Specialty Diagnoses / Procedures Referred By Contac t Referred To Contact CT IMAGING Diagnoses Malignant melanoma of skin (HCC) Procedures CT ABD/PEL WO IVCON CT ABD & PELVIS W/O CONTRAST AshlySaeed lancaster, DO [address] [place] [address] [place] [address] Referral ID Status Reason Start Date Expiration Date V isits Requested Visits Authorized [id number] Closed Auto-Generate d Referral 12/21/2021 01/20/2023 1 1 Specialty Diagnoses / Procedures Referred By Contac t Referred To Contact CT IMAGING Diagnoses Malignant melanoma of skin (HCC) Procedures CT CHEST WO IVCON DIAGNOSTIC COMPUTED TOMOGRAPHY THORAX W/O CNTRST Saeed Duke, DO [address] [place] [address] [place] [address] Referral ID Status Reason Start Date Expiration Date V isits Requested Visits Authorized [id number] Closed Auto-Generate d Referral 12/21/2021 01/20/2023 1 1 Specialty Diagnoses / Procedures Referred By Contac t Referred To Contact MR IMAGING Diagnoses Acquired cyst of kidney Procedures MRI KIDNEY WO/W IVCON MRI ABDOMEN W/O & W/CONTRAST MATERIAL Lacy Franco MD [address] [place] [address] Mr Imaging [facility] Referral ID Status Reason Start Date Expiration Date Visits Requested Visits Authorized [id number] Pending Review Auto-Generat ed Referral 11/21/2023 09/20/2024 1 1 Additional Source Comments (unrecognized sect ion and content) No Status Records FoundNo Status Records FoundNo Status Records FoundNo Status Records FoundNo Status Records Found INFORMATION SOURCE (unrecogn ized section and content) DATE CREATED AUTHOR AUTHOR'S ORGANIZ ATION 05/05/2020 [facility] ([place]) DATE CREATED AUTHOR AUTHOR'S ORGANIZ ATION 05/31/2023 [facility] DATE CREATED AUTHOR AUTHOR'S ORGANIZ ATION 08/25/2023 [facility] DATE CREATED AUTHOR AUTHOR'S ORGANIZ ATION 09/27/2023 [facility] Source Comments (unrecognize d section and content) In the event this informatio n is protected by the Federal Confidentiality of Alcohol and Drug Abuse Patient Records regulations: The Federal rules restrict any use of the information to criminally investigate or prosecute any alcohol or drug abuse patient.[facility] event this information is protected by the Federal Confidentiality of Alcohol and Drug Abuse Patient Records regulations: The Federal rules restrict any use of the information to criminally investigate or prosecute any alcohol or drug abuse patient.[facility] the event this information is protected by the Federal Confidentiality of Alcohol and Drug Abuse Patient Records regulations: The Federal rules restrict any use of the information to criminally investigate or prosecute any alcohol or drug abuse patient.[facility] the event this information is protected by the Federal Confidentiality of Alcohol and Drug Abuse Patient Records regulations: The Federal rules restrict any use of the information to criminally investigate or prosecute any alcohol or drug abuse patient.[facility] the event this information is protected by the Federal Confidentiality of Alcohol and Drug Abuse Patient Records regulations: The Federal rules restrict any use of the information to criminally investigate or prosecute any alcohol or drug abuse patient.[facility] the event this information is protected by the Federal Confidentiality of Alcohol and Drug Abuse Patient Records regulations: The Federal rules restrict any use of the information to criminally investigate or prosecute any alcohol or drug abuse patient.[facility] the event this information is protected by the Federal Confidentiality of Alcohol and Drug Abuse Patient Records regulations: The Federal rules restrict any use of the information to criminally investigate or prosecute any alcohol or drug abuse patient.[facility] the event this information is protected by the Federal Confidentiality of Alcohol and Drug Abuse Patient Records regulations: The Federal rules restrict any use of the information to criminally investigate or prosecute any alcohol or drug abuse patient.[facility] the event this information is protected by the Federal Confidentiality of Alcohol and Drug Abuse Patient Records regulations: The Federal rules restrict any use of the information to criminally investigate or prosecute any alcohol or drug abuse patient.[facility] the event this information is protected by the Federal Confidentiality of Alcohol and Drug Abuse Patient Records regulations: The Federal rules restrict any use of the information to criminally investigate or prosecute any alcohol or drug abuse patient.[facility] the event this information is protected by the Federal Confidentiality of Alcohol and Drug Abuse Patient Records regulations: The Federal rules restrict any use of the information to criminally investigate or prosecute any alcohol or drug abuse patient.[facility] the event this information is protected by the Federal Confidentiality of Alcohol and Drug Abuse Patient Records regulations: The Federal rules restrict any use of the information to criminally investigate or prosecute any alcohol or drug abuse patient.[facility] the event this information is protected by the Federal Confidentiality of Alcohol and Drug Abuse Patient Records regulations: The Federal rules restrict any use of the information to criminally investigate or prosecute any alcohol or drug abuse patient.[facility] the event this information is protected by the Federal Confidentiality of Alcohol and Drug Abuse Patient Records regulations: The Federal rules restrict any use of the information to criminally investigate or prosecute any alcohol or drug abuse patient.[facility] the event this information is protected by the Federal Confidentiality of Alcohol and Drug Abuse Patient Records regulations: The Federal rules restrict any use of the information to criminally investigate or prosecute any alcohol or drug abuse patient.[facility] the event this information is protected by the Federal Confidentiality of Alcohol and Drug Abuse Patient Records regulations: The Federal rules restrict any use of the information to criminally investigate or prosecute any alcohol or drug abuse patient.[facility] the event this information is protected by the Federal Confidentiality of Alcohol and Drug Abuse Patient Records regulations: The Federal rules restrict any use of the information to criminally investigate or prosecute any alcohol or drug abuse patient.[facility] the event this information is protected by the Federal Confidentiality of Alcohol and Drug Abuse Patient Records regulations: The Federal rules restrict any use of the information to criminally investigate or prosecute any alcohol or drug abuse patient.[facility] the event this information is protected by the Federal Confidentiality of Alcohol and Drug Abuse Patient Records regulations: The Federal rules restrict any use of the information to criminally investigate or prosecute any alcohol or drug abuse patient.[facility] the event this information is protected by the Federal Confidentiality of Alcohol and Drug Abuse Patient Records regulations: The Federal rules restrict any use of the information to criminally investigate or prosecute any alcohol or drug abuse patient.[facility] Reason for Visit (unrecogniz ed section and content) Reason Comments Radiology CT Specialty Diagnoses / Procedures Referred By Contac t Referred To Contact CT IMAGING Diagnoses Malignant melanoma of skin (HCC) Procedures CT ABD/PEL WO IVCON CT ABD & PELVIS W/O CONTRAST Saeed Duke, DO [address] [place] [address] Ct Imaging Referral ID Status Reason Start Date Expiration Date V isits Requested Visits Authorized [id number] Closed Auto-Generate d Referral 12/14/2021 12/27/2022 1 1 Reason Comments Established Patient Reason Comments Refill Request Reason Comments Results MRI abdomen Reason Comments Orders Reason Comments kidney mass Specialty Diagnoses / Procedures Referred By Contac t Referred To Contact Urology Diagnoses Kidney mass Procedures CONSULT TO UROLOGY OFFICE/OUTPATIENT NEW HIGH MDM 60-74 MINUTES Saeed Duke, DO [address] [facility] [address] Referral ID Status Reason Start Date Expiration Date Visits Requested Visits Authorized [id number] Pending Review PCP Requested Referral 02/05/2023 02/05/2024 1 1 Reason Comments Research Reason Onset Date Comments Appointment 05/15/2023 Specialty Diagnoses / Procedures Referred By Contac t Referred To Contact CT IMAGING Diagnoses Malignant melanoma of skin (HCC) Procedures CT NECK SOFT TISSUE W IVCON CT SOFT TISSUE NECK W/CONTRAST MATERIAL Saeed Duke, DO [address] [place] [address] [place] [address] Referral ID Status Reason Start Date Expiration Date V isits Requested Visits Authorized [id number] Closed Auto-Generate d Referral 12/21/2021 01/20/2023 [address] Specialty Diagnoses / Procedures Referred By Contac t Referred To Contact CT IMAGING Diagnoses Acquired cyst of kidney Procedures CT KIDNEY WO/W IVCON CT ABDOMEN W & W/O CONTRAST SrikanthSaeed, DO [address] [place] [address] [place] [address] Referral ID Status Reason Start Date Expiration Date V isits Requested Visits Authorized [id number] Closed Auto-Generate d Referral 01/25/2023 02/24/2024 [address] Specialty Diagnoses / Procedures Referred By Contac t Referred To Contact CT IMAGING Diagnoses Malignant melanoma of skin (HCC) Procedures CT ABD/PEL WO IVCON CT ABD & PELVIS W/O CONTRAST AshlySaeed lancaster, DO [address] [place] [address] [place] [address] Referral ID Status Reason Start Date Expiration Date V isits Requested Visits Authorized [id number] Closed Auto-Generate d Referral 12/21/2021 01/20/2023 1 1 Reason Comments Radiology US Specialty Diagnoses / Procedures Referred By Contac t Referred To Contact US IMAGING Diagnoses Complex renal cyst Procedures US KIDNEY/BLADDER US RETROPERITONEAL REAL TIME W/IMAGE COMPLETE Lacy Franco MD [address] [place] [address] [place] [address] Referral ID Status Reason Start Date Expiration Date V isits Requested Visits Authorized [id number] Closed Auto-Generate d Referral 08/14/2023 06/13/2024 1 1 Reason Comments Follow Up Right renal mass Care Teams (unrecognized sec tion and content) Workforce Development Assistant Relationship Specialty Start Date End Date Artie Mcnally MD PCP - General 05/18/08 Workforce Development Assistant Relationship Specialty Start Date End Date Artie Mcnally MD PCP - General 05/18/08 Workforce Development Assistant Relationship Specialty Start Date End Date Artie Mcnally MD PCP - General 05/18/08 Workforce Development Assistant Relationship Specialty Start Date End Date Artie Mcnally MD PCP - General 05/18/08 Workforce Development Assistant Relationship Specialty Start Date End Date Artie Mcnally MD PCP - General 05/18/08 Workforce Development Assistant Relationship Specialty Start Date End Date Artie Mcnally MD PCP - General 05/18/08 01/24/23 Workforce Development Assistant Relationship Specialty Start Date End Date Ruthie Calderon NP [address] [place], [place] [id number] PCP - General Family Medicine 05/15/23 Workforce Development Assistant Relationship Specialty Start Date End Date Artie Mcnally MD PCP - General 05/18/08 01/24/23 Workforce Development Assistant Relationship Specialty Start Date End Date Artie Mcnally MD PCP - General 05/18/08 01/24/23 Workforce Development Assistant Relationship Specialty Start Date End Date Ruthie Calderon NP [address] [place] [address] [place], [place] [phone] PCP - General Family Medicine 05/15/23 Workforce Development Assistant Relationship Specialty Start Date End Date Ruthie Calderon NP [address] [place] [address] [address] [place], [place] [id number] PCP - General Family Medicine 05/15/23 Workforce Development Assistant Relationship Specialty Start Date End Date Ruthie CalderonHUI [address] [place] [address] PCP - General Family Medicine 05/15/23 FOR RECORDS PERTAINING TO PATIENTS WHO ARE OR HAVE BEEN ENROLLED IN A CHEMICAL DEPENDENCY/SUBSTANCEABUSE PROGRAM, SOME INFORMATION MAY BE OMITTED. This clinical summary was aggregated from multiple sources. Caution should be exercised in using it in the provision of clinical care. This summary normalizes information from multiple sources, and as a consequence, information in this document may materially change the coding, format and clinical context of patient data. In addition, data may be omitted in some cases. CLINICAL DECISIONS SHOULD BE BASED ON THE PRIMARY CLINICAL RECORDS. [employer] [facility] provides no warranty or guarantee of the accuracy or completeness of information in this document.
[2023-10-24 13:04] LABS: Thyroid Stim Hormone (TSH) 0.98 uIU/mL (0.358-3.74)
== END | disposition home or self-care (01) ==
PROVIDERS: PCP Nurse Practitioner Family; Referring Provider Nurse Practitioner Family; Visit Provider Nurse Practitioner Family
DX: E03.9 Hypothyroidism, unspecified (principal)
CPT/HCPCS: 36415; 84439; 84443